=== PATIENT | female | born 1950 | race African-American/Black ===

== ENCOUNTER 2017-02-06 20:15 | Inpatient (IN) ==
--- NOTE | 2017-02-07 00:07 | Emergency Department Note ---
Arrival - Arrival Chief Complaint: Extremity Problem Stated Complaint: Left leg swollen ED Nursing Triage Note: Patient to triage with c/o LLE edema that has been going on for longer than a month, that has worsened since yesterday. Patient had US done last month to R/O DVT and was told she did not have any DVT. nonpitting edema to LLE noted in triage. Mode of Arrival: Ambulatory Time Seen by Provider: 02/06/17 23:09 - History of Present Illness HPI Narrative: This is a 66-year-old female of descent who first noted swelling of her left lower extremity in December where bilateral Doppler studies of the both lower extremities showed no deep venous thrombosis. Since that time the swelling of her left leg has become dramatically larger and more painful. She has had no chest pain palpitations nor hemoptysis. CT scan of her pelvis done in January 2017 showed 32 mm fluid collection in the vaginal cuff with residual surrounding soft tissue density which can be seen with residual necrotic tumor, abscess. Date of Last Menstrual Period: [facility] Allergies/Adverse Reactions: Allergies Allergy/AdvReac Type Severity Reaction Status Date / Time No Known Allergies Allergy Verified 02/06/17 20:33 Home Medications: Home Medications Medication Instructions Recorded Confirmed Type Pravastatin [Pravachol] 40 mg PO BEDTIME 04/20/15 11/07/16 History Bisacodyl Tab [Dulcolax Tab] 5 mg PO DAILY 11/07/16 11/07/16 History Metoprolol Tartrate 50 mg PO DAILY 11/07/16 11/07/16 History Brimonidine/Timolol Oph Soln 1 drop BOTH EYES BID 11/14/16 11/14/16 History [Combigan] Rivaroxaban [Xarelto] 15 mg PO BID W/MEALS #42 tablet 02/07/17 Rx Review of System - Review of System Constitutional: Absent: fever, night sweats Eyes: Absent: redness, vision change Head/Ears/Nose/Throat: Absent: epistaxis, nasal drainage Respiratory: Absent: respiratory distress Cardiovascular: Absent: dyspnea on exertion, orthopnea Gastrointestinal: Absent: diarrhea, constipation, hematemesis Genitourinary female: Absent: frequency, genital lesions, hematuria Musculoskeletal: Absent: joint swelling, lower back pain, leg pain Skin: Absent: change in hair/nails Neurological: Absent: numbness, paresthesias Psychiatric: Absent: suicidal thoughts, homicidal thoughts, auditory hallucinations Endocrine: Absent: heat intolerance, polydipsia, polyuria Hematological/Lymphatic: Absent: easy bruising Allergic/Immunologic: Absent: urticaria, itchy eyes Medical,Surgical,& Family Hx - Medical History Cardio: History of: Hypertension Neurology: History of: Vertigo (3 yrs ago) No history of: Seizures HEENT: History of: Eye Problem (glasses), Dental Problems (upper denture), Glaucoma Respiratory: History of: Pneumonia (2013) Renal: No history of: Renal Problems Genitourinary: No history of: Bladder Problem, Kidney Stones Gastrointestinal: History of: Hemorrhoids, GI Problems (constipation) Hematology: History of: Anemia, Bleeding Problems (vaginal bleeding) Reproductive: History of: Reproductive Cancer (CERIVAL) Other: History of: Cancer (CERVICAL) - Surgical History Cardiac Surgeries: Patient Denies: Cardiac Catheterization HEENT Surgeries: Patient denies: Eye Surgery, Tonsilectomy & Adenoidectomy Abdominal Surgeries: Surgical HX of: Colonoscopy Patient denies: Appendectomy, Cholecystectomy, EGD, Hernia Repair Reproductive Surgeries: Surgical HX of;: Gynecologic Surgery, Hysterectomy (2014 ), Tubal Ligation Patient denies;: Breast Surgery Orthopedic Surgeries: Patient denies;: Orthopedic Surgery - Family History Family History: Reports;: Family Diabetes (sister, mother), Family Heart Disease (mother), Family Hypertension (sisters mother) - Social History Smoking Status: Never smoker Frequency of Alcohol Use: None Type of Drug Use: None Exam Vital Signs: Vital Signs Temperature 98.5 F 02/06/17 20:29 Pulse Rate 90 02/06/17 20:29 Respiratory Rate 18 02/06/17 20:29 Blood Pressure 123/79 02/06/17 20:29 O2 Sat by Pulse Oximetry 99 02/06/17 20:29 - General Exam limited due to: ALOC General appearance: alert - Eye Eye exam: Present: PERRL, EOMI - ENT ENT exam: Present: normal exam, normal oropharynx - Neck Neck exam: Present: normal inspection, full ROM - Respiratory Respiratory exam: Present: normal lung sounds bilaterally - Cardiovascular Cardiovascular exam: Present: regular rate, normal rhythm - Abdominal Exam Abdominal exam: Present: soft, normal bowel sounds - Extremities Exam Extremities exam: Present: other (Marked edema and swelling of the left lower extremity) - Back Exam Back exam: Present: normal inspection, full ROM - Neurological Exam Neurological exam: Present: alert, oriented X3 - Psychiatric Psychiatric exam: Present: normal affect, normal mood - Skin Skin exam: Present: warm, dry Course Course Narrative: The patient has a deep venous thrombosis involving the left lower extremity. The CT scan of the abdomen shows a subsegmental right pulmonary embolus. Because of the combination of a pulmonary embolus and a large left deep venous thrombosis is seen prudent that the patient to be admitted to the hospital for anticoagulation and possible dedicated CT pulmonary angiogram of the chest. Results - Labs CBC & BMP: 02/07/17 00:00 02/07/17 00:00 Disposition Clinical Impression: Deep venous thrombosis, Pulmonary embolus Disposition: Still a Patient Additional Instructions: The CT scan of the abdomen shows a subsegmental right pulmonary embolus the Doppler study left lower extremity shows a large clot involving the major venous system of the left leg. Because of the pulmonary embolus it seems prudent that the patient should be admitted to the hospital for anticoagulation and further evaluation. Prescriptions: Rivaroxaban [Xarelto] 15 mg PO BID W/MEALS #42 tablet New Prescriptions: Rx's Medication Instructions Recorded Rivaroxaban [Xarelto] 15 mg PO BID W/MEALS #42 tablet 02/07/17
[2017-02-07] MEDS ORDERED: KETOROLAC 30 MG/1 ML VIAL IV STA (00:18)
[2017-02-07 00:24] LABS: Basophils % 0.4 % (0.0-0.8); Eosinophils # 0.7 10*3/uL (0.0-0.87); Eosinophils % 6.9 % (0.00-10.9); Hematocrit 37.8 VOL% (35.7-47.0); Hemoglobin 12.5 GM/DL (12.0-16.0); Immature Granulocytes % 0.6 %; Immature Granulocytes Absolute 0.06 #; Lymphocytes # 1.1 10*3/uL (1.4-4.0); Lymphocytes % 10.6 % (21.3-54.2); Mean Corpuscular HGB Conc 33.1 GM/DL (32-36); Mean Corpuscular Hemoglobin 29 PG (27-34); Mean Corpuscular Volume 87.1 FL (87-102); Mean Platelet Volume 10.5 FL (9.6-12.0); Monocytes # 0.6 10*3/uL (0.11-0.8); Monocytes % 5.7 % (1.7-12.7); Neutrophils % 75.8 % (38.7-73.9); Platelet Count 282 T/CUMM (130-400); Red Blood Count 4.34 MC/CUMM (3.8-5.5); White Blood Count 10.6 T/CUMM (4-12)
[2017-02-07 00:37] LABS: Albumin 3.9 G/DL (3.4-5.0); Bilirubin,Total 0.8 MG/DL (0.2-1.0); Calcium 9.5 MG/DL (8.5-10.1); Potassium 3.6 MMOL/L (3.5-5.1); Total Protein 8.7 G/DL (6.4-8.3)
[2017-02-07] MEDS ORDERED: KETOROLAC 30 MG/1 ML VIAL ONE (00:57)
[2017-02-07] MEDS ORDERED: RIVAROXABAN 15 MG TABLET PO STA (02:15)
[2017-02-07 03:01] LABS: PT Patient Result 11.1 SECS
--- NOTE | 2017-02-07 04:59 | Hospitalist History & Physical ---
Assessment and Plan (1) Endometrial carcinoma Status: Acute Assessment and plan: This at this point is been followed by her primary care physician and oncologist. Recent CT scan shows some fluid collection in the vaginal cuff suggesting possibly necrotic tissue. No suggestion of infection at this by a logical indices of CBC and clinical picture. Current Visit: Yes (2) Pulmonary nodule Status: Acute Assessment and plan: Reported this is noncalcified about 2 cm. Primary physician will be following. Current Visit: Yes (3) Deep venous thrombosis Status: Acute Assessment and plan: This is accompanied by a pulmonary embolus. Patient will be put on heparin for dose. I am not certain that she is not sitting that direct acting oral anticoagulant to coagulate will be afforded out as an outpatient. She has been given a coupon to use. We are going to start heparin at this time decision of outpatient treatment can be made when the affordability of direct acting anticoagulant can be verified. Current Visit: Yes (4) Pulmonary embolus Status: Acute Assessment and plan: Because so far this is an incidental finding, obtain CTA of chest to evaluate for the full body and no pulmonary embolism. Current Visit: Yes History of Present Illness Chief complaint: DVT PE History of present illness: Ms. Jacobson is a 66 year old female presented to the hospital for worsening swelling of the left lower extremity. Patient said that this may have started around December. Patient also venous having associated pain with the sweating. The patient the swelling got to be dramatically more. She has had some shortness of breath especially with exertion of a. No pleurisy. No cough hemoptysis. No fevers. Patient was initially evaluated in the emergency which was found to have a DVT of this left lower extremity plan was to discharge with Xarelto take for the DVT. In the process information was discovered by the emergency room for the patient did have an abnormal CT scan relating to her history of all endometrial carcinoma that revealed some more residual fluid in the vaginal cuff. He decided to repeat abdominal pelvic CT scan which also had some chest clots. On this CT scan patient does have a pulmonary embolus. For that reason will call to admit this patient for further evaluation and management. At this point I believe the patient can be put on heparin decision to treat with the oral director acting anticoagulants can be made later. I am informed that the DVT involves the whole lower extremity. As such patient has a large DVT burden. In talking to how her last surgery was done in 2014. She has not had any long distance travel. There is no history of thrombophilia in the family. After surgery for the endometrial carcinoma she did not have any problems with DVTs. However it should be known that she does have a noncalcified nodule on the lung there is no other demonstration of disease anywhere she does have a history of wall pelvic irradiation. Pre-existing history of carcinoma does have low prothrombotic risk. I therefore cannot say that 100% of this DVT is not provoked. Home Medications Medication Instructions Recorded Confirmed Type Pravastatin [Pravachol] 40 mg PO BEDTIME 04/20/15 11/07/16 History Bisacodyl Tab [Dulcolax Tab] 5 mg PO DAILY 11/07/16 11/07/16 History Metoprolol Tartrate 50 mg PO DAILY 11/07/16 11/07/16 History Brimonidine/Timolol Oph Soln 1 drop BOTH EYES BID 11/14/16 11/14/16 History [Combigan] Rivaroxaban [Xarelto] 15 mg PO BID W/MEALS #42 tablet 02/07/17 Rx Allergies Allergy/AdvReac Type Severity Reaction Status Date / Time No Known Allergies Allergy Verified 02/06/17 20:33 Medical,Surgical,& Family Hx - Medical History Cardio: History of: Hypertension Neurology: History of: Vertigo (3 yrs ago) No history of: Seizures HEENT: History of: Eye Problem (glasses), Dental Problems (upper denture), Glaucoma Respiratory: History of: Pneumonia (2013) Renal: No history of: Renal Problems Genitourinary: No history of: Bladder Problem, Kidney Stones Gastrointestinal: History of: Hemorrhoids, GI Problems (constipation) Hematology: History of: Anemia, Bleeding Problems (vaginal bleeding) Reproductive: History of: Reproductive Cancer (CERIVAL) Other: History of: Cancer (CERVICAL) - Surgical History Cardiac Surgeries: Patient Denies: Cardiac Catheterization HEENT Surgeries: Patient denies: Eye Surgery, Tonsilectomy & Adenoidectomy Abdominal Surgeries: Surgical HX of: Colonoscopy Patient denies: Appendectomy, Cholecystectomy, EGD, Hernia Repair Reproductive Surgeries: Surgical HX of;: Gynecologic Surgery, Hysterectomy (2015 ), Tubal Ligation Patient denies;: Breast Surgery Orthopedic Surgeries: Patient denies;: Orthopedic Surgery - Family History Family History: Reports;: Family Diabetes (sister, mother), Family Heart Disease (mother), Family Hypertension (sisters mother) - Social History Smoking Status: Never smoker Frequency of Alcohol Use: None Type of Drug Use: None Review of systems: 12 point system assessment has been done. This significant for the chief complaint and history of presenting illness and past medical history. Patient is well developed and preserved in no acute distress. Exam - Constitutional Vitals: Period Temp Pulse Resp BP Sys/Mondragon Pulse Ox Last 24 Hr 98.5 F-98.5 F 90-90 18-18 123-123/79-79 99 General appearance: normal weight, no acute distress - Head Head exam: Present: normocephalic - Eye Eye exam: Present: EOMI, other (Anicteric sclera no conjunctival petechiae) Pupils: Present: VINCE - ENT ENT exam: Present: normal exam - Neck Neck exam: Present: normal inspection - Respiratory Respiratory exam: Present: clear to auscultation bilaterally - Cardiovascular Cardiovascular exam: Present: regular rate and rhythm - GI/Abdominal GI/Abdominal exam: Present: normal bowel sounds - Extremities Exam Extremities exam: Present: full ROM, other (Significant edema of the left lower extremity tenderness and the cough no fragment is) - Neurological Exam Neurological exam: Present: alert, oriented X3, CN II-XII intact - Psychiatric Psychiatric exam: Present: normal affect, normal mood - Skin Skin exam: Present: normal color, warm, dry Results - Labs CBC & BMP: 02/07/17 00:00 02/07/17 00:00 Lab Results: I have reviewed the past 24 hour labs (PTT of 26 and INR of 1.0 hemogram was normal chemistry is unremarkable)
[2017-02-07] MEDS: HEPARIN DRIP 25,000 UNITS/500 ML PREMIX IV SCH ×2 (05:10→23:51)
--- NOTE | 2017-02-07 06:20 | Ultrasound Report ---
Exam: US venous doppler LE LT Indication: DVT questioned pain Date: 02/07/2017 12:16 AM Findings: Grayscale color flow duplex/Doppler imaging and spectral analysis waveform imaging was performed with real-time ultrasound with image stored and captured. The left common femoral, superficial femoral, popliteal and saphenous veins are demonstrated with extensive thrombus present. There is no evidence of popliteal or Britt's cyst. Abnormal wave form analysis present. Abnormal color flow. Impression: 1. Acute Extensive left lower extremity deep vein thrombosis. These findings represent a change when compared to the previous exam dated 12/28/2016 Critical test report was given to Dr. Kapoor at 2:22 AM by [facility] radiology PROCEDURE INTERPRETED AT [facility] DEPARTMENT OF RADIOLOGY Final Report Signed by: Dr. Jack Damon
--- NOTE | 2017-02-07 06:42 | CT Report ---
Exam: CT abdomen pelvis w con Date: 02/07/2017 12:17 AM Comparison: Previous CT abdomen pelvis 08/15/2016 Indication: Left leg pain and swelling Total DLP: 498.1 mGy*cm Technical: The study was performed without oral contrast Images were obtained from the lung bases to the iliac crest continuation through the pelvis with 100 cc of Omnipaque 350 with axial sagittal coronal imaging available for review. Dose reduction was performed with decreasing kv and mA and automated exposure Findings: The exam reveals initially reviewed by C. Lung bases: No obvious infiltrates or effusions. Mid thromboemboli present in the right lung base Liver and Spleen: There is minimal abnormality within the liver. Small calcification in the right lobe of the liver is present. The hepatic and portal veins are otherwise unremarkable. The spleen is intact. Gallbladder and Pancreas: Unremarkable Adrenals: Unremarkable Kidneys: Both kidneys are equally perfused and demonstrate no evidence for obstructive uropathy. A 7 mm cyst is present in the right kidney laterally Stomach: Incomplete distended with air fluid and debris Retroperitoneum: No enlarged lymph nodes. Aorta and IVC: Minimal atherosclerotic plaque in aorta iliac vessels. Bowel and Mesentery: There is no evidence for bowel obstruction. No evidence of appendicitis or diverticulosis or diverticulitis clearly seen. Pelvis: Bladder: Partially distended with fluid with little contrast present Fluid: No free fluid identified. Lymph nodes: Small calcifications are present in the pelvis. No adenopathy present. Pelvic organs: No adnexal mass lesions are clearly seen otherwise. Osseous structures: Compression deformity present at T10. There is mild anterolisthesis of L3 with respect to L4. Impression: 1. Compression fracture at T10 2. Pulmonary thromboemboli incidentally noted in the lung bases on the right with extensive DVT in the left leg suspected involving the left external iliac common femoral vein 3. Minimal bladder wall thickening with incomplete distention 4. Hepatic lesion. This possibly could represent hemangiomata clarified Formal CT PE chest may be beneficial Critical test report given to Dr. Kapoor at 2:22 AM PROCEDURE INTERPRETED AT [facility] DEPARTMENT OF RADIOLOGY Final Report Signed by: Dr. Jack Damon
--- NOTE | 2017-02-07 12:01 | CT Report ---
Exam: CT chest PE study Date: 02/07/2017 5:13 AM Indication: Pulmonary thromboemboli demonstrated on CT abdomen pelvis 1 day earlier with DVT in the left leg Comparison: Previous abdomen pelvis CT and ultrasound of the left leg Total DLP 179.4 Technical: Images were obtained from the thoracic inlet through the lung bases with 80 cc of Omnipaque 350 with axial and coronal imaging available for review.Dose reduction was performed with decreasing kv and mA and automated exposure. 3-D MIP images were obtained Findings: Examination reveals pulmonary thromboemboli in the second third order branches of the posterior right lung base. The primary pulmonary outflow tract and proximal left and right pulmonary arteries are unremarkable. There is small area of thrombus in the second and third order branches of the left lung also present. The lungs are clear without infiltrates or effusions. The mediastinum and bony structures are intact. Small granuloma present in the liver. The spleen is intact. There is contrast in the kidneys. Stomach is incompletely distended. Adrenal glands are intact. Impression: 1. Bilateral pulmonary thromboemboli involving the second and third order branches of the right and left lung base PROCEDURE INTERPRETED AT [facility] DEPARTMENT OF RADIOLOGY Final Report Signed by: Dr. Jack Damon
[2017-02-07] MEDS ORDERED: BISACODYL 5 MG TABLET PO PRN (12:48)
--- NOTE | 2017-02-07 12:54 | Event Note ---
Patient seen and examined and chart reviewed. 66-year-old -[place] female was admitted with left leg swelling, was found to have extensive DVT left leg, as well as bilateral pulmonary emboli. She has mild chest discomfort for pulmonary emboli. She has past medical history of hypertension, glaucoma, constipation and hypercholesterolemia. Currently she is on IV heparin infusion. We will check a 2D echocardiogram. I have discussed the case with interventional radiology by phone today and they are going to evaluate her for thrombolysis and an IVC filter. All questions were answered.
--- NOTE | 2017-02-07 14:42 | Event Note ---
Interventional Radiology was asked to see the patient regarding the possibility of left lower extremity thrombolysis. Review of CT and ultrasound images from earlier today shows extensive deep venous thrombosis of the left lower extremity extending through the left external iliac vein level. There is also evidence of peripheral pulmonary embolic disease. Discussed benefits, risks, and alternatives to thrombolysis of the left lower extremity. Also discussed benefits and risks of IVC filter placement prior to thrombolysis, given the fact that she has evidence of acute pulmonary embolic disease. The patient verbally gives consent to the procedure. It is planned to perform IVC filter placement and left lower extremity thrombolysis tomorrow since the patient had a regular diet lunch at or after 12:00 PM today.
[2017-02-07] MEDS: BRIMONIDINE/TIMOLOL OPH SOLN 5 ML BOTTLE BOTH EYES SCH ×2 (15:59→20:47)
--- NOTE | 2017-02-07 20:03 | ECHO Report ---
Hilary Jacobson Exam Date: 02/07/2017 13:22 Referring Physician: Technologist: ej Vaca ARDMS, RVT Age: 66 Ht (in): 62 Wt (lb): 145 Gender: F Exam Location: [facility] Echo Indications: Pulmonary embolus bilateral, DVT, Pulmonary nodule, Endometrial ca BP: 115 / 72 HR: 78 Rhythm: Sinus Technical Quality: Fair IMPRESSIONS Normal LV systolic function, ejection fraction 65%. Grade 1/4 diastolic dysfunction consistent with impaired relaxation. Mild tricuspid and pulmonic regurgitation. MEASUREMENTS (Male / Female) Normal Values 2D ECHO LV Diastolic Diameter PLAX 3.3 cm 4.2 - 5.9 / 3.9 - 5.3 cm LV Systolic Diameter PLAX 2.1 cm LV Fractional Shortening PLAX 37.5 % IVS Diastolic Thickness 0.7 cm 0.6 - 1.0 / 0.6 - 0.9 cm LVPW Diastolic Thickness 0.8 cm 0.6 - 1.0 / 0.6 - 0.9 cm RV Internal Dim ED PLAX 2.7 cm Aortic Root Diameter 2.5 cm LA Systolic Diameter LX 2.7 cm 3.0 - 4.0 / 2.7 - 3.8 cm DOPPLER TR Peak Velocity 233.0 cm/s TR Peak Gradient 21.7 mmHg FINDINGS Left Ventricle Normal left ventricular cavity size. Normal left ventricular wall thickness. Left ventricular ejection fraction is estimated at 65%. Right Ventricle The right ventricle is normal in size and function. Right Atrium The right atrium is normal in size. Left Atrium The left atrium is normal in size. Mitral Valve Mitral valve sclerosis. No mitral valve regurgitation. Aortic Valve Morphologically normal aortic valve without significant sclerosis or stenosis. There is no aortic regurgitation. Tricuspid Valve Morphologically normal tricuspid valve. Trace tricuspid valve regurgitation. Tricuspid regurgitation velocities suggest a PAP of 32 mmHg. Pulmonic Valve Morphologically normal pulmonic valve. Mild pulmonary valve regurgitation. Pericardium Normal pericardium without effusion. Aorta Normal ascending aorta dimension. Yaz Valdez MD (Electronically Signed) Final Date: 07 February 2017 20:02
[2017-02-07] MEDS: PRAVASTATIN 40 MG TABLET PO SCH (20:47)
[2017-02-07] MEDS: DOCUSATE SODIUM 100 MG CAPSULE PO SCH (20:47)
[2017-02-08] MEDS ORDERED: DIAZEPAM 5 MG TABLET PO ONE (09:09)
[2017-02-08] MEDS: FUROSEMIDE 40 MG TABLET PO SCH (09:22)
[2017-02-08] MEDS: DOCUSATE SODIUM 100 MG CAPSULE PO SCH ×2 (09:22→20:23)
[2017-02-08] MEDS: BRIMONIDINE/TIMOLOL OPH SOLN 5 ML BOTTLE BOTH EYES SCH ×2 (09:22→20:24)
--- NOTE | 2017-02-08 13:03 | Consultation ---
Assessment and Plan (1) Endometrial carcinoma Problem details: The patient states that she always bleeds after Dr. Thacker examined her for about a week. She is scheduled to follow-up with him earlier this month. While on suspicious for recurrence of cancer at the vaginal cuff I see no reason to pursue this at this point since she already has a visit scheduled with multiskill operator. Status: Acute Assessment and plan: Follow-up with Dr. Aldrich as planned. Proceed with treatment of current chief complaint as needed. Current Visit: Yes History of Present Illness - Data of Consult Patient: known to practice within the last 3 years Consult date: 02/08/17 - Consult Narrative Reason for consult: Postmenopausal bleeding with history of endometrial cancer and treatment History of present illness: Ms. Jacobson is a 66 year old female who has a known history of postmenopausal bleeding which is been evaluated and confirmed to be an endometrioid carcinoma. She has undergone surgery and radiation. Her last follow-up with her oncologist (Dr. Aldrich at [facility] in [place]) was in December and did not show recurrence. However, she has a follow-up scheduled for this month. She is currently been admitted for IV thromboembolism DVT and is being anticoagulated. However her bleeding began last night prior to anticoagulation and there is no history of intercourse or vaginal trauma. CC: Michael Flores MD - Home Medications and Allergies Home Medications: Home Medications Medication Instructions Recorded Confirmed Type Pravastatin [Pravachol] 40 mg PO BEDTIME 04/20/15 02/07/17 History Bisacodyl Tab [Dulcolax Tab] 5 mg PO BID 11/07/16 02/07/17 History Metoprolol Tartrate 50 mg PO DAILY 11/07/16 02/07/17 History Brimonidine/Timolol Oph Soln 1 drop BOTH EYES BID 11/14/16 02/07/17 History [Combigan] Docusate Sodium Cap [Colace Cap] 100 mg PO DAILY 02/07/17 02/07/17 History Furosemide [Furosemide] 40 mg PO DAILY 02/07/17 02/07/17 History Allergies/Adverse Reactions: Allergies Allergy/AdvReac Type Severity Reaction Status Date / Time No Known Allergies Allergy Verified 02/06/17 20:33 Medical,Surgical,& Family Hx - Medical History Cardio: History of: Hypertension Neurology: History of: Vertigo (3 yrs ago) No history of: Seizures HEENT: History of: Eye Problem (glasses), Dental Problems (upper denture), Glaucoma Respiratory: History of: Pneumonia (2013) Renal: No history of: Renal Problems Genitourinary: No history of: Bladder Problem, Kidney Stones Gastrointestinal: History of: Hemorrhoids, GI Problems (constipation) Hematology: History of: Anemia, Bleeding Problems (vaginal bleeding) Reproductive: History of: Reproductive Cancer (cervical) Other: History of: Cancer (CERVICAL) - Surgical History Cardiac Surgeries: Patient Denies: Cardiac Catheterization HEENT Surgeries: Patient denies: Eye Surgery, Tonsilectomy & Adenoidectomy Abdominal Surgeries: Surgical HX of: Colonoscopy Patient denies: Appendectomy, Cholecystectomy, EGD, Hernia Repair Reproductive Surgeries: Surgical HX of;: Gynecologic Surgery, Hysterectomy (2014 ), Tubal Ligation Patient denies;: Breast Surgery Orthopedic Surgeries: Patient denies;: Orthopedic Surgery - Family History Family History: Reports;: Family Diabetes (sister, mother), Family Heart Disease (mother), Family Hypertension (sisters mother) - Social History Smoking Status: Never smoker Frequency of Alcohol Use: None Type of Drug Use: None Exam - Constitutional Vitals: Period Temp Pulse Resp BP Sys/Mondragon Pulse Ox Last 24 Hr 97.9 F-98.8 F 65-77 16-18 107-125/57-73 93-100 General appearance: no acute distress - Head Head exam: Present: normal inspection - Respiratory Respiratory exam: Present: clear to auscultation bilaterally. Absent: accessory muscle use - Cardiovascular Cardiovascular exam: Present: regular rate and rhythm - GI/Abdominal GI/Abdominal exam: Present: soft. Absent: distended, guarding, tenderness - Extremities Exam Extremities exam: Present: normal inspection - Neurological Exam Neurological exam: Present: alert, oriented X3 - Psychiatric Psychiatric exam: Present: normal affect, normal mood - Skin Skin exam: Present: normal color, warm, dry Results - Labs CBC & BMP: 02/07/17 00:00 02/07/17 00:00 Exam JUKE BOX SERVICER - Constitutional Vitals: Vital Signs Temp Pulse Resp BP Pulse Ox 02/08/17 12:00 98.8 F 66 18 125/57 100 02/08/17 08:00 98.5 F 65 107/72 93 L 02/08/17 04:00 98.7 F 73 18 120/73 98 02/08/17 03:00 18 02/08/17 01:10 18 02/08/17 00:15 97.9 F 72 18 112/67 96 02/07/17 20:20 98.0 F 77 18 115/73 97 02/07/17 16:00 97.9 F 77 16 120/70 97 - Breast Menstruation: post hysterectomy, post menopausal (The vagina is shortened from previous surgery and radiation for endometrial cancer. Speculum exam confirms the bleeding to be coming from the top of the vagina. This does not allow visualization. Digital exam reveals it to be hard irregular and rigid. No deep pelvic masses palpable.)
[2017-02-08] MEDS: SODIUM CHLORIDE 0.45% 1,000 ML IV SCH (15:34)
--- NOTE | 2017-02-08 15:47 | Post Interventional Procedure ---
Pre-op diagnosis: Deep venous thrombosis. Acute pulmonary embolic disease Post-op diagnosis: same Procedure: IR IVC filter placement Radiologist: Izabel Mueller Anesthesia: local Specimens: none sent Estimated blood loss: minimal (less than 3 ml) Complications: none Condition: stable Description/Findings: Informed consent was obtained. Formal timeout was performed. The patient was prepped and draped in standard fashion while in the supine position. Maximum sterile barrier technique was utilized. Using ultrasound guidance and using 1% local lidocaine anesthesia, a micropuncture needle was used to percutaneously puncture the right internal jugular vein from an anterior right lateral approach. Ultrasound images were captured and archived, documenting needle placement. A guidewire was used to traverse the superior vena cava and right atrium and enter the inferior vena cava. A 5 Setswana flush catheter was then positioned in the inferior vena cava at the L4-L5 level. Serial filming over the IVC in the AP projection during contrast injection was performed, for the purposes of an inferior venacavogram. The IVC is normal in caliber at 15 mm diameter. There is no thrombus within the IVC. The renal veins are both clearly visualized. Following guidewire exchange, an introducer sheath was in position with its distal tip in the IVC. A [place] IVC filter was then placed in an infrarenal location with satisfactory result, using the standard delivery kit. There is no significant tilt of the filter. No immediate complications were encountered. The catheters were removed, and manual pressure was used to obtain hemostasis. The patient was allowed to leave the interventional suite after hemostasis had been achieved. Total fluoroscopy time: 6.1 minutes Total contrast used: 20 mL Omnipaque 350 Total fluoroscopic images captured and archived: 36 Impression: IVC filter was placed in an infrarenal location from a right internal jugular percutaneous approach, with technical success Assessment and Plan - Time spent with patient Time spent with patient: Less than 30 minutes
--- NOTE | 2017-02-08 15:50 | Interventional Radiology Rpt ---
History: Deep venous thrombosis. Acute pulmonary embolic disease. Now with new onset vaginal bleeding while on heparin Date: 02/08/2017 Study: IR IVC filter placement Comparison exam: Not applicable Informed consent was obtained. Formal timeout was performed. The patient was prepped and draped in standard fashion while in the supine position. Maximum sterile barrier technique was utilized. Using ultrasound guidance and using 1% local lidocaine anesthesia, a micropuncture needle was used to percutaneously puncture the right internal jugular vein from an anterior right lateral approach. Ultrasound images were captured and archived, documenting needle placement. A guidewire was used to traverse the superior vena cava and right atrium and enter the inferior vena cava. A 5 [place] flush catheter was then positioned in the inferior vena cava at the L4-L5 level. Serial filming over the IVC in the AP projection during contrast injection was performed, for the purposes of an inferior venacavogram. The IVC is normal in caliber at 15 mm diameter. There is no thrombus within the IVC. The renal veins are both clearly visualized. Following guidewire exchange, an introducer sheath was in position with its distal tip in the IVC. A [place] IVC filter was then placed in an infrarenal location with satisfactory result, using the standard delivery kit. There is no significant tilt of the filter. No immediate complications were encountered. The catheters were removed, and manual pressure was used to obtain hemostasis. The patient was allowed to leave the interventional suite after hemostasis had been achieved. Total fluoroscopy time: 6.1 minutes Total contrast used: 20 mL Omnipaque 350 Total fluoroscopic images captured and archived: 36 Impression: IVC filter was placed in an infrarenal location from a right internal jugular percutaneous approach, with technical success PROCEDURE INTERPRETED AT [facility] Final Report Signed by: Dr. Izabel Mueller
--- NOTE | 2017-02-08 16:34 | Hospitalist Progress Note ---
Hospitalist: Subjective Interval history: 66-year-old -[place] female was admitted with left leg swelling, was found to have extensive DVT left leg, as well as bilateral pulmonary emboli. She has mild chest discomfort for pulmonary emboli. She has past medical history of hypertension, glaucoma, constipation and hypercholesterolemia. She has some problems with vaginal bleeding today and CONTACT LENS BLOCKER AND CUTTER were consulted. She is status post IVC filter placement by interventional radiology today. Exam - Constitutional Vitals: Period Temp Pulse Resp BP Sys/Mondragon Pulse Ox Last 24 Hr 97.8 F-98.8 F 61-80 16-20 107-147/57-87 93-100 Exam: General: [No Acute Distress] HEENT: [Normocephalic, atraumatic, Extra ocular movements intact] Neck: [Supple, No JVD] Chest: [Clear to auscultation B/L] CV: [S1 + S2 audible without murmur, gallop or rub] Abd: [soft, NT, Non-distended, BS +] Ext: [Left lower extremity swelling] Skin: [No purpura, bruising or rash] Rheumatologic: [No Joint deformities] Neurologic: [Strength 5/5 all extremities, no gross sensory deficits] Results - Labs CBC & BMP: 02/07/17 00:00 02/07/17 00:00 - Impressions Assessment and Plan Deep venous thrombosis leg and bilateral pulmonary emboli Status: Acute Assessment and plan: She has extensive DVT in the leg, as well as bilateral pulmonary emboli; she is status post IVC filter placement 02/08 by interventional radiology using transjugular approach. Thrombolysis could not be done due to her vaginal bleeding. Current Visit: Yes Vagina bleeding with history of endometrial carcinoma Status: Acute Assessment and plan: Patient was seen by Dr. Nobles ENTERPRISE SYSTEMS MANAGER for vaginal bleeding. It felt that she might have recurrence of cancer at the vaginal cuff. Dr. Nobles recommended that patient continue follow-up with Dr. Thacker her oncologist at [facility] as an outpatient. Patient has had previous surgery and radiation for endometrial carcinoma. We will continue to monitor her CBC Current Visit: Yes Other medical comorbidities are essential hypertension, hypercholesterolemia and glaucoma which are currently stable on home meds
[2017-02-08] MEDS ORDERED: HEPARIN 5,000 UNIT/1 ML VIAL IV PRN ×2 (17:00)
[2017-02-08] MEDS: PRAVASTATIN 40 MG TABLET PO SCH (20:23)
[2017-02-09] MEDS: HEPARIN DRIP 25,000 UNITS/500 ML PREMIX IV SCH ×2 (01:09→20:06)
[2017-02-09 06:37] LABS: Basophils # 0.1 10*3/uL (0.0-0.2); Basophils % 0.6 % (0.0-0.8); Eosinophils # 1.6 10*3/uL (0.0-0.87); Hematocrit 31.8 VOL% (35.7-47.0); Hemoglobin 10.6 GM/DL (12.0-16.0); Immature Granulocytes % 0.5 %; Immature Granulocytes Absolute 0.05 #; Lymphocytes # 1.5 10*3/uL (1.4-4.0); Lymphocytes % 14.3 % (21.3-54.2); Mean Corpuscular HGB Conc 33.3 GM/DL (32-36); Mean Corpuscular Hemoglobin 29 PG (27-34); Mean Corpuscular Volume 86.9 FL (87-102); Mean Platelet Volume 10.3 FL (9.6-12.0); Monocytes # 0.8 10*3/uL (0.11-0.8); Monocytes % 7.8 % (1.7-12.7); Neutrophils # 6.5 10*3/uL (1.4-7.4); Neutrophils % 61.8 % (38.7-73.9); Platelet Count 243 T/CUMM (130-400); Red Blood Count 3.66 MC/CUMM (3.8-5.5); White Blood Count 10.5 T/CUMM (4-12)
[2017-02-09 07:06] LABS: Band Neutrophils 1 % (0-10); Eosinophils 16 % (0-10); Hypochromasia 1+; Lymphocytes 14 % (20-55); Platelet Estimate Adequate; Segmented Neutrophils 63 % (50-85); Total Cells Counted 100
[2017-02-09 07:22] LABS: Calcium 9.1 MG/DL (8.5-10.1); Osmolality,Calculated 273.8 MOS/KG (273-304); Potassium 3.4 MMOL/L (3.5-5.1)
[2017-02-09] MEDS: FUROSEMIDE 40 MG TABLET PO SCH (08:07)
[2017-02-09] MEDS: DOCUSATE SODIUM 100 MG CAPSULE PO SCH ×2 (08:07→20:05)
[2017-02-09] MEDS: BRIMONIDINE/TIMOLOL OPH SOLN 5 ML BOTTLE BOTH EYES SCH ×2 (08:07→20:05)
[2017-02-09] MEDS: SODIUM CHLORIDE 0.45% 1,000 ML IV SCH (13:19)
--- NOTE | 2017-02-09 16:03 | Hospitalist Progress Note ---
Hospitalist: Subjective Interval history: 66-year-old -Salvad[place] female was admitted with left leg swelling, was found to have extensive DVT left leg, as well as bilateral pulmonary emboli. She has past medical history of hypertension, glaucoma, constipation and hypercholesterolemia. She only has minimal vaginal bleed. Exam - Constitutional Vitals: Period Temp Pulse Resp BP Sys/Mondragon Pulse Ox Last 24 Hr 97.3 F-99.0 F 71-88 16-20 108-117/62-78 93-99 Exam: General: [No Acute Distress] HEENT: [Normocephalic, atraumatic, Extra ocular movements intact] Neck: [Supple, No JVD] Chest: [Clear to auscultation B/L] CV: [S1 + S2 audible without murmur, gallop or rub] Abd: [soft, NT, Non-distended, BS +] Ext: [Left lower extremity swelling] Skin: [No purpura, bruising or rash] Rheumatologic: [No Joint deformities] Neurologic: [Strength 5/5 all extremities, no gross sensory deficits] Results - Labs CBC & BMP: 02/09/17 05:54 02/09/17 05:54 - Impressions Assessment and Plan Deep venous thrombosis leg and bilateral pulmonary emboli Status: Acute Assessment and plan: She has extensive DVT in the leg, as well as bilateral pulmonary emboli; she is status post IVC filter placement 02/08 by interventional radiology using transjugular approach. Thrombolysis could not be done due to her vaginal bleeding. Current Visit: Yes Vagina bleeding with history of endometrial carcinoma Status: Acute Assessment and plan: Patient is being followed by Dr. Nobles PROGRAM AND RESEARCH COORDINATOR for vaginal bleeding. It felt that she might have recurrence of cancer at the vaginal cuff. Dr. Nobles recommended that patient continue follow-up with Dr. Thacker her oncologist at [facility] as an outpatient. Patient has had previous surgery and radiation for endometrial carcinoma. We will continue to monitor her CBC. She does have some anemia of GI blood loss, will transfuse as needed. If any time PROGRAM AND RESEARCH COORDINATOR feels that she is going to need an endometrial biopsy, we can temporarily hold the heparin for that, especially now that she has an IVC filter in place. Current Visit: Yes Other medical comorbidities are essential hypertension, hypercholesterolemia and glaucoma which are currently stable on home meds
[2017-02-09] MEDS: POTASSIUM CHLORIDE 20 MEQ TABLET PO SCH (17:31)
[2017-02-09] MEDS: PRAVASTATIN 40 MG TABLET PO SCH (20:05)
[2017-02-10 06:47] LABS: Basophils % 0.4 % (0.0-0.8); Eosinophils # 1.7 10*3/uL (0.0-0.87); Eosinophils % 18.5 % (0.00-10.9); Hematocrit 31.1 VOL% (35.7-47.0); Hemoglobin 10.2 GM/DL (12.0-16.0); Immature Granulocytes % 0.5 %; Immature Granulocytes Absolute 0.05 #; Lymphocytes # 1.4 10*3/uL (1.4-4.0); Lymphocytes % 15.4 % (21.3-54.2); Mean Corpuscular HGB Conc 32.8 GM/DL (32-36); Mean Corpuscular Hemoglobin 29 PG (27-34); Mean Corpuscular Volume 88.1 FL (87-102); Mean Platelet Volume 9.8 FL (9.6-12.0); Monocytes # 0.8 10*3/uL (0.11-0.8); Monocytes % 8.7 % (1.7-12.7); Neutrophils # 5.3 10*3/uL (1.4-7.4); Neutrophils % 56.5 % (38.7-73.9); Platelet Count 242 T/CUMM (130-400); Red Blood Count 3.53 MC/CUMM (3.8-5.5); Red Cell Distribution Width 13.1 % (9.3-17.3); White Blood Count 9.4 T/CUMM (4-12)
[2017-02-10 07:10] LABS: Band Neutrophils 1 % (0-10); Eosinophils 16 % (0-10); Giant Platelets Few; Hypochromasia 1+; Lymphocytes 17 % (20-55); Myelocytes 1 %; Ovalocytes Slight; Platelet Estimate Adequate; Segmented Neutrophils 59 % (50-85); Total Cells Counted 100
[2017-02-10 08:06] LABS: Calcium 8.9 MG/DL (8.5-10.1); Osmolality,Calculated 276.5 MOS/KG (273-304); Potassium 4.3 MMOL/L (3.5-5.1)
[2017-02-10] MEDS: HEPARIN DRIP 25,000 UNITS/500 ML PREMIX IV SCH (08:09)
[2017-02-10] MEDS: BRIMONIDINE/TIMOLOL OPH SOLN 5 ML BOTTLE BOTH EYES SCH (09:07)
[2017-02-10] MEDS: POTASSIUM CHLORIDE 20 MEQ TABLET PO SCH (09:07)
[2017-02-10] MEDS: DOCUSATE SODIUM 100 MG CAPSULE PO SCH (09:07)
[2017-02-10] MEDS: SODIUM CHLORIDE 0.45% 1,000 ML IV SCH (09:07)
[2017-02-10] MEDS: FUROSEMIDE 40 MG TABLET PO SCH (09:07)
[2017-02-10] MEDS ORDERED: APIXABAN 5 MG TABLET PO SCH (12:30)
--- NOTE | 2017-02-10 12:39 | Discharge Summary ---
Hospital Course - Hospital Course Hospital Course: 66 year old female presented to the hospital for worsening swelling of the left lower extremity going on for over a month and was found to have extensive DVT of the left lower extremity on ultrasound. She also had some shortness of breath especially with exertion and CT abdomen actually showed bilateral pulmonary pulmonary emboli incidentally as well. Patient was admitted to the hospital and started on IV heparin infusion. She also has history of previous endometrial carcinoma for which she follows with Dr. Thacker at [facility] in [place] is her PAINT SPRAYING MACHINE OPERATOR HELPER; she has had surgery and pelvic irradiation in the past for that. She did have history of intermittent vaginal bleeding especially on pelvic exam. She did have recurrence of some of the vagina bleeding while she was in the hospital. PAINT SPRAYING MACHINE OPERATOR HELPER were consulted and patient was seen by Dr. Nobles who did a pelvic exam and recommended that patient continue follow-up with Dr. Aldrich as an outpatient. Internal interventional radiology were consulted for IVC filter placement as well as consideration for thrombolysis of left lower cavity DVT. However due to her active intermittent vaginal bleeding radiologist only performed an IVC filter and postponed thrombolyses until after her vaginal bleeding issues have resolved. Patient was agreeable to this plan and underwent an IVC filter placement. As Dr. Nobles has referred patient back to Dr. Thacker her primary PAINT SPRAYING MACHINE OPERATOR HELPER and the radiologist is not considering thrombolysis at this time, we are transitioning her to oral Eliquis and discharge home. Patient is in contact with her primary PAINT SPRAYING MACHINE OPERATOR HELPER Dr. Thacker was aware that she is on anticoagulants. She will call Dr. Thacker about her vaginal bleeding issues and get an appointment for further evaluation and management of that problem. Patient leg swelling has improved and her DVT seems to be improving as well. She does understand that she is going to need long-term anticoagulation. Her primary care physician will follow up with that as an outpatient. Overall patient has reached maximal hospital benefit and is agreeable to be discharged home to follow-up with Dr. Thacker as an outpatient and continue follow-up with her primary care physician as well and return to ER for any worsening symptoms. Discharge instructions and prescriptions were provided. Total discharge time was 46 minutes. - Time spent with patient Time with patient DS: Greater than 30 minutes Discharge Plan - Discharge Data Condition at Discharge: Stable Discharge Diet: advance to your usual diet Activity: resume usual activities as tolerated Hygiene: no restrictions Weight Bearing at Discharge: full weight bearing Driving: no restrictions Contact your physician if you experience:: fever over 101, Nausea/Vomiting, Shortness of breath, pain uncontrolled by pain medications - Discharge Medications New Apixaban [Eliquis] 5 mg PO BID #60 tablet HYDROcodone/ACETAMIN 5-325 [[place] 5-325] 1 tablet PO Q4H PRN #30 tablet PRN Reason: Pain Moderate (4-7) Continue Pravastatin [Pravachol] 40 mg PO BEDTIME Bisacodyl Tab [Dulcolax Tab] 5 mg PO BID Furosemide 40 mg PO DAILY Docusate Sodium Cap [Colace Cap] 100 mg PO DAILY Brimonidine/Timolol Oph Soln [Combigan] 1 drop BOTH EYES BID Discontinued Metoprolol Tartrate 50 mg PO DAILY - Follow Up or Referral Follow Up: No PCP,. [Physician] - 2 Weeks - Forms/Instructions Exam - Constitutional Vitals: Period Temp Pulse Resp BP Sys/Mondragon Pulse Ox Last 24 Hr 98.0 F-98.8 F 65-85 16-19 102-111/58-76 93-100 Exam: General: [No Acute Distress] HEENT: [Normocephalic, atraumatic, Extra ocular movements intact] Neck: [Supple, No JVD] Chest: [Clear to auscultation B/L] CV: [S1 + S2 audible without murmur, gallop or rub] Abd: [soft, NT, Non-distended, BS +] Ext: [Moderate lower extremity swelling] Skin: [No purpura, bruising or rash] Rheumatologic: [No Joint deformities] Neurologic: [Strength 5/5 all extremities, no gross sensory deficits] Discharge Results Procedures and tests throughout hospitalization: Pending Orders 02/10/17 12:18 PTT [Partial Thromboplastin Time] Routine 02/11/17 04:00 BMP [Basic Metabolic Panel] IN AM CBC [Comp Blood Count Auto Diff] IN AM 02/12/17 04:00 BMP [Basic Metabolic Panel] IN AM CBC [Comp Blood Count Auto Diff] IN AM 02/13/17 04:00 BMP [Basic Metabolic Panel] IN AM CBC [Comp Blood Count Auto Diff] IN AM 02/14/17 04:00 BMP [Basic Metabolic Panel] IN AM CBC [Comp Blood Count Auto Diff] IN AM Labs on day of discharge: Labs from last 24 hours 09/01/1902/10/17 02/10/17 06:16 06:16 06:16 WBC 9.4 RBC 3.53 L Hgb 10.2 L Hct 31.1 L MCV 88.1 MCH 29 MCHC 32.8 RDW 13.1 Plt Count 242 MPV 9.8 Neut % (Auto) 56.5 Lymph % (Auto) 15.4 L [place] % (Auto) 8.7 Eos % (Auto) 18.5 H Baso % (Auto) 0.4 Neut # (Auto) 5.3 Lymph # (Auto) 1.4 [place] # (Auto) 0.8 Eos # (Auto) 1.7 H Baso # (Auto) 0.0 Total Counted 100 Immature Gran % 0.5 Nucleated RBC % 0.0 Immature Gran # 0.05 Segmented Neutrophils 59 Band Neutrophils 1 Lymphocytes 17 L Monocytes 5 Eosinophils 16 H Basophils 1.0 H Myelocytes 1 Nucleated RBCs # 0.00 Platelet Estimate Adequate Giant Platelets Few Immature Plt Fraction 0.0 Hypochromasia 1+ Ovalocytes Slight Circ Anticoag PTT 86.1 H Sodium 139 Potassium 4.3 Chloride 104 Carbon Dioxide 28 Anion Gap 11.3 BUN 9 Creatinine 0.70 GFR Calculation 101 BUN/Creatinine Ratio 12.00 Glucose 109 H Calculated Osmolality 276.5 Calcium 8.9 02/09/17 02/09/17 19:43 14:05 WBC RBC Hgb Hct MCV MCH MCHC RDW Plt Count MPV Neut % (Auto) Lymph % (Auto) [place] % (Auto) Eos % (Auto) Baso % (Auto) Neut # (Auto) Lymph # (Auto) [place] # (Auto) Eos # (Auto) Baso # (Auto) Total Counted Immature Gran % Nucleated RBC % Immature Gran # Segmented Neutrophils Band Neutrophils Lymphocytes Monocytes Eosinophils Basophils Myelocytes Nucleated RBCs # Platelet Estimate Giant Platelets Immature Plt Fraction Hypochromasia Ovalocytes Circ Anticoag PTT 79.8 H 68.1 H D Sodium Potassium Chloride Carbon Dioxide Anion Gap BUN Creatinine GFR Calculation BUN/Creatinine Ratio Glucose Calculated Osmolality Calcium DS: Provider Date of admission: 02/07/17 04:52 Primary care physician: Jack Franco, Attending physician on admission: Quan Jerry MD Consults: 02/07/17 08:50 Consult to Physician [CONS] Routine Comment: Please evaluate for extensive DVT Consulting Provider: Izabel Mueller When should Consulting Provider be notified: Now Person Notified: RE Date Notified: 02/07/17 Time Notified: 10:17 02/08/17 10:20 Consult to Physician [CONS] Routine Comment: eval vaginal bleeding- Consulting Provider: Jack Nobles Consult to Specialist Group: [id number] Person Notified: Keira Date Notified: 02/08/17 Time Notified: 10:29 Discharging clinician: Michael Flores MD
[2017-02-10 17:02] VITALS: BP 111/73
== END 2017-02-10 18:20 | disposition home or self-care (01) | DRG 252 ==
LOC: N.ED 20:15 → SUATTDRO 02-07 04:52 → N.EDINP 02-07 04:52 → N.5E 02-07 05:35
PROVIDERS: ADMIT Internal Medicine Infectious Disease; ATTEND Hospitalist

== ENCOUNTER 2017-03-31 17:42 | Inpatient (IN) ==
[2017-03-31] MEDS ORDERED: ONDANSETRON 4 MG/2 ML VIAL IV STA (19:24)
[2017-03-31] MEDS ORDERED: MORPHINE 2 MG/1 ML SYRINGE IV STA (19:24)
[2017-03-31] MEDS ORDERED: MORPHINE 2 MG/1 ML SYRINGE ONE ×2 (19:47→19:48)
[2017-03-31] MEDS ORDERED: ONDANSETRON 4 MG/2 ML VIAL ONE (19:47)
[2017-03-31 20:34] LABS: Basophils % 0.3 % (0.0-0.8); Eosinophils % 8.1 % (0.00-10.9); Hematocrit 29.8 VOL% (35.7-47.0); Immature Granulocytes % 0.6 %; Immature Granulocytes Absolute 0.07 #; Lymphocytes # 1.4 10*3/uL (1.4-4.0); Lymphocytes % 11.9 % (21.3-54.2); Mean Corpuscular HGB Conc 33.6 GM/DL (32-36); Mean Corpuscular Hemoglobin 28 PG (27-34); Mean Corpuscular Volume 83.2 FL (87-102); Mean Platelet Volume 9.4 FL (9.6-12.0); Monocytes # 0.8 10*3/uL (0.11-0.8); Monocytes % 6.7 % (1.7-12.7); Neutrophils # 8.6 10*3/uL (1.4-7.4); Neutrophils % 72.4 % (38.7-73.9); Platelet Count 443 T/CUMM (130-400); Red Blood Count 3.58 MC/CUMM (3.8-5.5); Red Cell Distribution Width 12.8 % (9.3-17.3); White Blood Count 11.9 T/CUMM (4-12)
[2017-03-31 20:56] LABS: Alanine Aminotransferase 10 U/L (13-56); Albumin 3.3 G/DL (3.4-5.0); Alkaline Phosphatase 111 U/L (45-117); Aspartate Amino Transferase 14 U/L (0-37); Blood Urea Nitrogen 15 MG/DL (7-18); Calcium 9.5 MG/DL (8.5-10.1); Glucose 103 MG/DL (74-106); Osmolality,Calculated 275.7 MOS/KG (273-304); Sodium 138 MMOL/L (136-145); Total Protein 8.1 G/DL (6.4-8.3); Troponin I Only < 0.015 NG/ML (0.00-0.045)
[2017-03-31 21:31] LABS: Apearance,Urine CLEAR (Clear); Bacteria,Urine Occasional /HPF (Few); Bilirubin,Urine Negative (Negative); Blood, Urine Negative (Negative); Glucose,Urine (UA) Negative (Negative); Ketones,Urine Negative (Negative); Nitrite,Urine Negative (Negative); Protein,Urine Negative; RBC,Urine 1 /HPF (0-4); Urine Color Yellow (Yellow); Urine Specific Gravity 1.005 (1.001-1.035); Urine Urobilinogen < 2.0 EU/DL (0.2-1.0); WBC,Urine 4 /HPF (0-6)
[2017-03-31] MEDS ORDERED: HYDROmorphone 2 MG/1 ML VIAL IV STA ×2 (21:43→22:21)
[2017-03-31] MEDS ORDERED: HYDROmorphone 2 MG/1 ML VIAL ONE ×2 (21:52→22:56)
[2017-04-01] MEDS ORDERED: ONDANSETRON 4 MG/2 ML VIAL IV PRN (00:05)
[2017-04-01 01:17] LABS: Lactic Acid 1.1 MMOL/L (0.4-2.0)
[2017-04-01] MEDS: SODIUM CHLORIDE 0.9% 1,000 ML IV SCH ×2 (01:18→15:18)
[2017-04-01] MEDS: ENOXAPARIN 60 MG/0.6 ML SYRINGE SUBCUT SCH (01:24)
[2017-04-01] MEDS: MORPHINE 2 MG/1 ML SYRINGE IV PRN ×3 (01:30→15:19)
[2017-04-01] MEDS: NITROFURANTOIN MACRO/MONO 100 MG CAPSULE PO SCH ×2 (01:33→09:16)
[2017-04-01 03:09] LABS: Basophils % 0.3 % (0.0-0.8); Eosinophils # 0.9 10*3/uL (0.0-0.87); Eosinophils % 7.5 % (0.00-10.9); Hematocrit 28.6 VOL% (35.7-47.0); Hemoglobin 9.4 GM/DL (12.0-16.0); Immature Granulocytes % 0.5 %; Immature Granulocytes Absolute 0.06 #; Lymphocytes # 1.2 10*3/uL (1.4-4.0); Lymphocytes % 9.8 % (21.3-54.2); Mean Corpuscular HGB Conc 32.9 GM/DL (32-36); Mean Corpuscular Hemoglobin 28 PG (27-34); Mean Corpuscular Volume 84.4 FL (87-102); Mean Platelet Volume 9.8 FL (9.6-12.0); Monocytes # 1.1 10*3/uL (0.11-0.8); Monocytes % 9.6 % (1.7-12.7); Neutrophils # 8.6 10*3/uL (1.4-7.4); Neutrophils % 72.3 % (38.7-73.9); Platelet Count 418 T/CUMM (130-400); Red Blood Count 3.39 MC/CUMM (3.8-5.5); White Blood Count 11.8 T/CUMM (4-12)
[2017-04-01 04:17] LABS: Alanine Aminotransferase < 9 U/L (13-56); Albumin 3.1 G/DL (3.4-5.0); Alkaline Phosphatase 95 U/L (45-117); Aspartate Amino Transferase 10 U/L (0-37); Blood Urea Nitrogen 14 MG/DL (7-18); Calcium 9.4 MG/DL (8.5-10.1); Glucose 93 MG/DL (74-106); Osmolality,Calculated 277.5 MOS/KG (273-304); Potassium 3.7 MMOL/L (3.5-5.1); Sodium 139 MMOL/L (136-145); Total Protein 7.2 G/DL (6.4-8.3)
[2017-04-01] MEDS: NALOXEGOL OXALATE 25 MG PO SCH (09:15)
[2017-04-01] MEDS: BRIMONIDINE/TIMOLOL OPH SOLN 5 ML BOTTLE BOTH EYES SCH ×2 (09:16→20:36)
[2017-04-01] MEDS: METOPROLOL TARTRATE 50 MG TABLET PO SCH (09:17)
[2017-04-01] MEDS ORDERED: MIDAZOLAM 2 MG/2 ML VIAL IV ONE (11:46)
[2017-04-01] MEDS ORDERED: fentaNYL 100 MCG/2 ML VIAL IV ONE (11:46)
[2017-04-01] MEDS ORDERED: DIAZEPAM 5 MG TABLET PO ONE ×2 (11:46)
[2017-04-01 12:42] LABS: Partial Thromboplastin Time 28.1 SECS (0-40)
[2017-04-01] MEDS ORDERED: MIDAZOLAM 2 MG/2 ML VIAL ONE (13:47)
[2017-04-01] MEDS ORDERED: fentaNYL 100 MCG/2 ML VIAL ONE (13:47)
[2017-04-01] MEDS: oxyCODONE/ACETAMINOPHEN 5-325 MG TABLET PO PRN ×2 (17:16→22:56)
[2017-04-01] MEDS: PRAVASTATIN 40 MG TABLET PO SCH (20:30)
[2017-04-01] MEDS: DOCUSATE SODIUM 100 MG CAPSULE PO PRN (20:37)
[2017-04-02] MEDS: SODIUM CHLORIDE 0.9% 1,000 ML IV SCH ×2 (04:22→16:08)
[2017-04-02] MEDS: BRIMONIDINE/TIMOLOL OPH SOLN 5 ML BOTTLE BOTH EYES SCH ×2 (12:06→20:21)
[2017-04-02] MEDS: GABAPENTIN 100 MG CAPSULE PO PRN ×2 (12:06→16:44)
[2017-04-02] MEDS: DOCUSATE SODIUM 100 MG CAPSULE PO PRN (12:06)
[2017-04-02] MEDS: METOPROLOL TARTRATE 50 MG TABLET PO SCH (12:06)
[2017-04-02] MEDS: oxyCODONE/ACETAMINOPHEN 5-325 MG TABLET PO PRN ×2 (12:46→18:58)
[2017-04-02] MEDS: ENOXAPARIN 60 MG/0.6 ML SYRINGE SUBCUT SCH ×2 (16:42→22:56)
[2017-04-02] MEDS: PRAVASTATIN 40 MG TABLET PO SCH (20:21)
[2017-04-02] MEDS: NALOXEGOL OXALATE 25 MG PO SCH (20:21)
[2017-04-03] MEDS: SODIUM CHLORIDE 0.9% 1,000 ML IV SCH (00:31)
[2017-04-03] MEDS: oxyCODONE/ACETAMINOPHEN 5-325 MG TABLET PO PRN ×4 (01:20→21:54)
[2017-04-03] MEDS: METOPROLOL TARTRATE 50 MG TABLET PO SCH (09:41)
[2017-04-03] MEDS: BRIMONIDINE/TIMOLOL OPH SOLN 5 ML BOTTLE BOTH EYES SCH ×2 (09:41→21:54)
[2017-04-03] MEDS: ENOXAPARIN 60 MG/0.6 ML SYRINGE SUBCUT SCH ×2 (09:41→21:46)
[2017-04-03] MEDS: NALOXEGOL OXALATE 25 MG PO SCH (09:42)
[2017-04-03] MEDS: MAGNESIUM HYDROXIDE SUSP 30 ML UDCUP PO PRN ×2 (16:52→22:17)
[2017-04-03] MEDS: GABAPENTIN 100 MG CAPSULE PO SCH ×2 (16:52→21:46)
[2017-04-03] MEDS: PRAVASTATIN 40 MG TABLET PO SCH (21:46)
[2017-04-04] MEDS: oxyCODONE/ACETAMINOPHEN 5-325 MG TABLET PO PRN ×3 (04:11→18:17)
[2017-04-04] MEDS: MAGNESIUM HYDROXIDE SUSP 30 ML UDCUP PO PRN (04:11)
[2017-04-04] MEDS: SODIUM CHLORIDE 0.9% 1,000 ML IV SCH ×2 (04:16→17:03)
[2017-04-04 07:00] LABS: Basophils % 0.2 % (0.0-0.8); Eosinophils # 1.6 10*3/uL (0.0-0.87); Eosinophils % 14.5 % (0.00-10.9); Hematocrit 25.6 VOL% (35.7-47.0); Hemoglobin 8.2 GM/DL (12.0-16.0); Immature Granulocytes % 0.6 %; Immature Granulocytes Absolute 0.07 #; Lymphocytes # 0.9 10*3/uL (1.4-4.0); Lymphocytes % 8.3 % (21.3-54.2); Mean Corpuscular Hemoglobin 28 PG (27-34); Mean Corpuscular Volume 87.4 FL (87-102); Mean Platelet Volume 10.7 FL (9.6-12.0); Monocytes # 0.8 10*3/uL (0.11-0.8); Monocytes % 6.8 % (1.7-12.7); Neutrophils # 7.7 10*3/uL (1.4-7.4); Neutrophils % 69.6 % (38.7-73.9); Red Blood Count 2.93 MC/CUMM (3.8-5.5); Red Cell Distribution Width 13.3 % (9.3-17.3)
[2017-04-04 07:06] LABS: Platelet Count 293 T/CUMM (130-400)
[2017-04-04 07:23] LABS: Eosinophils 17 % (0-10); Giant Platelets Few; Hypochromasia 1+; Lymphocytes 9 % (20-55); Ovalocytes Slight; Platelet Estimate Adequate; Segmented Neutrophils 68 % (50-85); Total Cells Counted 100
[2017-04-04 07:24] LABS: Microcytosis Slight
[2017-04-04 07:27] LABS: Alanine Aminotransferase < 9 U/L (13-56); Albumin 2.3 G/DL (3.4-5.0); Alkaline Phosphatase 78 U/L (45-117); Aspartate Amino Transferase 13 U/L (0-37); Bilirubin,Total < 0.39 MG/DL (0.2-1.0); Blood Urea Nitrogen 8 MG/DL (7-18); Calcium 8.7 MG/DL (8.5-10.1); Glucose 89 MG/DL (74-106); Sodium 143 MMOL/L (136-145)
[2017-04-04] MEDS: ENOXAPARIN 60 MG/0.6 ML SYRINGE SUBCUT SCH (09:38)
[2017-04-04] MEDS: NALOXEGOL OXALATE 25 MG PO SCH (09:39)
[2017-04-04] MEDS: METOPROLOL TARTRATE 50 MG TABLET PO SCH (09:39)
[2017-04-04] MEDS: BRIMONIDINE/TIMOLOL OPH SOLN 5 ML BOTTLE BOTH EYES SCH ×2 (09:39→23:12)
[2017-04-04] MEDS: GABAPENTIN 100 MG CAPSULE PO SCH ×3 (09:39→23:11)
[2017-04-04] MEDS: MORPHINE 2 MG/1 ML SYRINGE IV PRN ×3 (09:59→23:08)
[2017-04-04] MEDS ORDERED: LACTULOSE 20 GM/30 ML UDCUP PO PRN (14:44)
[2017-04-04] MEDS: fentaNYL 12 MCG/HR PATCH TRANSDERM SCH (15:55)
[2017-04-04] MEDS: POLYETHYLENE GLYCOL POWDER 17 GM PACK PO SCH (15:55)
[2017-04-04] MEDS: PRAVASTATIN 40 MG TABLET PO SCH (23:11)
[2017-04-05] MEDS: oxyCODONE/ACETAMINOPHEN 5-325 MG TABLET PO PRN ×3 (00:43→16:24)
[2017-04-05] MEDS ORDERED: DIAZEPAM 5 MG TABLET PO ONE (06:00)
[2017-04-05] MEDS ORDERED: FAMOTIDINE 20 MG TABLET PO ONE (06:00)
[2017-04-05] MEDS: SODIUM CHLORIDE 0.9% 1,000 ML IV SCH ×2 (06:29→18:05)
[2017-04-05] MEDS ORDERED: DIBUCAINE 1% OINT 28 GM TUBE TOP ONE (13:07)
[2017-04-05] MEDS ORDERED: PROPOFOL 200 MG/20 ML VIAL IV ONE (13:35)
[2017-04-05] MEDS ORDERED: LIDOCAINE 2% 5 ML VIAL ONE (13:35)
[2017-04-05] MEDS ORDERED: DEXAMETHASONE 10 MG/1 ML VIAL ONE (13:35)
[2017-04-05] MEDS ORDERED: ONDANSETRON 4 MG/2 ML VIAL ONE (13:35)
[2017-04-05] MEDS ORDERED: KETOROLAC 30 MG/1 ML VIAL ONE (13:35)
[2017-04-05] MEDS ORDERED: MIDAZOLAM 2 MG/2 ML VIAL ONE (14:35)
[2017-04-05] MEDS ORDERED: SEVOFLURANE 1 UNIT/15 MINUTE INH ONE (14:35)
[2017-04-05] MEDS ORDERED: fentaNYL 100 MCG/2 ML VIAL ONE (14:36)
[2017-04-05] MEDS: GABAPENTIN 100 MG CAPSULE PO SCH ×3 (16:24→21:00)
[2017-04-05] MEDS: DOCUSATE SODIUM 100 MG CAPSULE PO PRN (16:25)
[2017-04-05] MEDS: POLYETHYLENE GLYCOL POWDER 17 GM PACK PO SCH (16:30)
[2017-04-05] MEDS: METOPROLOL TARTRATE 50 MG TABLET PO SCH (19:16)
[2017-04-05] MEDS: ENOXAPARIN 60 MG/0.6 ML SYRINGE SUBCUT SCH (20:58)
[2017-04-05] MEDS: PRAVASTATIN 40 MG TABLET PO SCH (20:59)
[2017-04-05] MEDS ORDERED: METHEN/SOD PHOS/METH BLUE/HYOS TABLET PO SCH (21:00)
[2017-04-05] MEDS: BRIMONIDINE/TIMOLOL OPH SOLN 5 ML BOTTLE BOTH EYES SCH ×2 (21:00→22:13)
[2017-04-05] MEDS: NALOXEGOL OXALATE 25 MG PO SCH (22:13)
[2017-04-06 01:31] LABS: Apearance,Urine CLEAR (Clear); Bacteria,Urine Occasional /HPF (Few); Bilirubin,Urine Negative (Negative); Blood, Urine Small mg/dL (Negative); Glucose,Urine (UA) Negative (Negative); Ketones,Urine 5 mg/dL (Negative); Mucus,Urine Occasional /LPF (Occasional); Nitrite,Urine Negative (Negative); Protein,Urine Negative; RBC,Urine 2 /HPF (0-4); Squamous Epithelial Cell,Urine Occasional /HPF (0-10); Urine Color Yellow (Yellow); Urine Specific Gravity 1.009 (1.001-1.035); Urine Urobilinogen < 2.0 EU/DL (0.2-1.0); WBC,Urine 4 /HPF (0-6)
[2017-04-06] MEDS: GABAPENTIN 100 MG CAPSULE PO SCH ×4 (02:11→22:15)
[2017-04-06] MEDS: oxyCODONE/ACETAMINOPHEN 5-325 MG TABLET PO PRN ×2 (09:56→16:44)
[2017-04-06] MEDS: POLYETHYLENE GLYCOL POWDER 17 GM PACK PO SCH (09:57)
[2017-04-06] MEDS: METOPROLOL TARTRATE 50 MG TABLET PO SCH (09:58)
[2017-04-06] MEDS: DOCUSATE SODIUM 100 MG CAPSULE PO PRN (09:58)
[2017-04-06] MEDS: PHENAZOPYRIDINE 95 MG TABLET PO SCH ×3 (09:58→22:31)
[2017-04-06] MEDS: BRIMONIDINE/TIMOLOL OPH SOLN 5 ML BOTTLE BOTH EYES SCH ×2 (10:14→22:15)
[2017-04-06] MEDS: NALOXEGOL OXALATE 25 MG PO SCH (10:18)
[2017-04-06] MEDS: ENOXAPARIN 60 MG/0.6 ML SYRINGE SUBCUT SCH (10:25)
[2017-04-06] MEDS: SODIUM CHLORIDE 0.9% 1,000 ML IV SCH (10:46)
[2017-04-06] MEDS: APIXABAN 5 MG TABLET PO SCH ×2 (16:44→22:15)
[2017-04-06] MEDS: DOCUSATE SODIUM 100 MG CAPSULE PO SCH ×2 (16:44→22:15)
[2017-04-06] MEDS: PRAVASTATIN 40 MG TABLET PO SCH (22:15)
[2017-04-07] MEDS: SODIUM CHLORIDE 0.9% 1,000 ML IV SCH (00:25)
[2017-04-07] MEDS: oxyCODONE/ACETAMINOPHEN 5-325 MG TABLET PO PRN ×3 (00:46→14:23)
[2017-04-07] MEDS: PHENAZOPYRIDINE 95 MG TABLET PO SCH ×2 (08:20→12:40)
[2017-04-07] MEDS: BRIMONIDINE/TIMOLOL OPH SOLN 5 ML BOTTLE BOTH EYES SCH (08:20)
[2017-04-07] MEDS: DOCUSATE SODIUM 100 MG CAPSULE PO SCH (08:20)
[2017-04-07] MEDS: APIXABAN 5 MG TABLET PO SCH (08:20)
[2017-04-07] MEDS: GABAPENTIN 100 MG CAPSULE PO SCH ×2 (08:21→14:45)
[2017-04-07] MEDS: POLYETHYLENE GLYCOL POWDER 17 GM PACK PO SCH (08:21)
[2017-04-07] MEDS: METOPROLOL TARTRATE 50 MG TABLET PO SCH (08:21)
[2017-04-07] MEDS: NALOXEGOL OXALATE 25 MG PO SCH (08:26)
[2017-04-07] MEDS: fentaNYL 12 MCG/HR PATCH TRANSDERM SCH (08:39)
[2017-04-07] MEDS ORDERED: fentaNYL 25 MCG/HR PATCH TRANSDERM SCH (09:30)
[2017-04-07 16:38] VITALS: BP 130/61
[2017-04-07] MEDS ORDERED: POLYETHYLENE GLYCOL POWDER 17 GM PACK PO SCH (21:00)
== END 2017-04-07 17:24 | disposition home health service (06) | DRG 988 ==
LOC: EDBD → EDUNIT# → N.ED 17:42 → SUATTDRO 23:45 → N.EDINP 23:45 → N.2E 04-01 00:42
PROVIDERS: ADMIT Internal Medicine; ATTEND Internal Medicine

== ENCOUNTER 2017-05-03 17:16 | Inpatient (IN) ==
[2017-05-03] MEDS ORDERED: SODIUM CHLORIDE 0.9% 1,000 ML IV STA (17:30)
[2017-05-03] MEDS ORDERED: ONDANSETRON 4 MG/2 ML VIAL IV STA (17:30)
[2017-05-03] MEDS ORDERED: ONDANSETRON 4 MG/2 ML VIAL ONE (18:20)
[2017-05-03] MEDS ORDERED: PANTOPRAZOLE 40 MG VIAL IV STA (18:46)
[2017-05-03 18:47] LABS: Basophils % 0.3 % (0.0-0.8); Eosinophils # 1.6 10*3/uL (0.0-0.87); Eosinophils % 11.1 % (0.00-10.9); Hematocrit 26.6 VOL% (35.7-47.0); Hemoglobin 8.7 GM/DL (12.0-16.0); Immature Granulocytes % 0.7 %; Lymphocytes # 1.1 10*3/uL (1.4-4.0); Lymphocytes % 7.4 % (21.3-54.2); Mean Corpuscular HGB Conc 32.7 GM/DL (32-36); Mean Corpuscular Hemoglobin 28 PG (27-34); Mean Corpuscular Volume 85.8 FL (87-102); Mean Platelet Volume 9.1 FL (9.6-12.0); Monocytes % 7.1 % (1.7-12.7); Neutrophils # 10.6 10*3/uL (1.4-7.4); Neutrophils % 73.4 % (38.7-73.9); Platelet Count 429 T/CUMM (130-400); Red Cell Distribution Width 14.8 % (9.3-17.3); White Blood Count 14.4 T/CUMM (4-12)
[2017-05-03 19:03] LABS: INR 1.1; PT Patient Result 11.4 SECS; Partial Thromboplastin Time 29.9 SECS (0-40)
[2017-05-03 19:11] LABS: Eosinophils 7 % (0-10); Hypochromasia Slight; Lymphocytes 8 % (20-55); Platelet Estimate Normal; Segmented Neutrophils 77 % (50-85); Total Cells Counted 100
[2017-05-03] MEDS ORDERED: MORPHINE 2 MG/1 ML SYRINGE IV STA (19:11)
[2017-05-03 19:17] LABS: Ammonia < 10 UMOL/L (11-32)
[2017-05-03] MEDS ORDERED: PANTOPRAZOLE 40 MG VIAL IV ONE (19:19)
[2017-05-03] MEDS ORDERED: MORPHINE 2 MG/1 ML SYRINGE ONE (19:19)
[2017-05-03 19:20] LABS: Albumin 2.9 G/DL (3.4-5.0); Bilirubin,Total 0.4 MG/DL (0.2-1.0); Calcium 9.7 MG/DL (8.5-10.1); Osmolality,Calculated 272.8 MOS/KG (273-304); Potassium 4.6 MMOL/L (3.5-5.1); Total Protein 7.4 G/DL (6.4-8.3)
[2017-05-03 19:21] LABS: Magnesium 2.3 MG/DL (1.8-2.4); Troponin I Only < 0.015 NG/ML (0.00-0.045)
[2017-05-03 20:05] LABS: Apearance,Urine CLEAR (Clear); Bacteria,Urine Occasional /HPF (Few); Bilirubin,Urine Negative (Negative); Blood, Urine Moderate mg/dL (Negative); Glucose,Urine (UA) Negative (Negative); Hyaline Casts,Urine 12 /LPF (0-3); Ketones,Urine Negative (Negative); Mucus,Urine Occasional /LPF (Occasional); Nitrite,Urine Negative (Negative); Protein,Urine Negative; RBC,Urine 19 /HPF (0-4); Urine Color Straw (Yellow); Urine Specific Gravity 1.004 (1.001-1.035); Urine Urobilinogen < 2.0 EU/DL (0.2-1.0); WBC,Urine 6 /HPF (0-6)
[2017-05-03] MEDS ORDERED: cefTRIAXone 1,000 MG in SODIUM CHLORIDE 0.9% 100 ML IV STA (20:06)
[2017-05-03] MEDS ORDERED: cefTRIAXone 1,000 MG VIAL ONE (20:44)
[2017-05-03] MEDS ORDERED: BENZTROPINE 2 MG/2 ML AMP IV PRN (22:13)
[2017-05-03] MEDS ORDERED: MYLANTA/LIDO VISC 2:1 300 ML BOTTLE SWISH/SWAL PRN (22:13)
[2017-05-03] MEDS ORDERED: LOPERAMIDE 2 MG CAPSULE PO PRN ×2 (22:13)
[2017-05-03] MEDS ORDERED: ALUMINUM/MAGNES/SIMETH MAX STR 30 ML UDCUP PO PRN (22:13)
[2017-05-03] MEDS ORDERED: diphenhydrAMINE CAP 25 MG CAPSULE PO PRN (22:13)
[2017-05-03] MEDS ORDERED: LACTULOSE 20 GM/30 ML UDCUP PO PRN (22:13)
[2017-05-03] MEDS ORDERED: traMADol 50 MG TABLET PO PRN (22:13)
[2017-05-03] MEDS ORDERED: ALPRAZolam 0.25 MG TABLET PO PRN (22:13)
[2017-05-03] MEDS ORDERED: MAGNESIUM HYDROXIDE SUSP 30 ML UDCUP PO PRN (22:13)
[2017-05-03] MEDS ORDERED: DEXTROSE 50% 25 GM/50 ML VIAL IV PRN (22:13)
[2017-05-03] MEDS ORDERED: guaiFENesin 200 MG/10 ML UDCUP PO PRN (22:13)
[2017-05-03] MEDS ORDERED: TEMAZEPAM 7.5 MG CAPSULE PO PRN (22:13)
[2017-05-03] MEDS ORDERED: GLUCAGON 1 MG VIAL IM PRN (22:13)
[2017-05-03] MEDS ORDERED: ACETAMINOPHEN 325 MG TABLET PO PRN (22:13)
[2017-05-03] MEDS ORDERED: MYLANTA/LIDO VISC 2:1 300 ML BOTTLE SWISH/SPIT PRN (22:13)
[2017-05-03 22:46] LABS: Basophils % 0.3 % (0.0-0.8); Eosinophils # 1.5 10*3/uL (0.0-0.87); Eosinophils % 11.2 % (0.00-10.9); Hematocrit 24.5 VOL% (35.7-47.0); Immature Granulocytes % 0.7 %; Immature Granulocytes Absolute 0.09 #; Lymphocytes # 1.4 10*3/uL (1.4-4.0); Lymphocytes % 10.4 % (21.3-54.2); Mean Corpuscular HGB Conc 32.7 GM/DL (32-36); Mean Corpuscular Hemoglobin 28 PG (27-34); Mean Corpuscular Volume 84.5 FL (87-102); Mean Platelet Volume 8.7 FL (9.6-12.0); Monocytes % 7.5 % (1.7-12.7); Neutrophils # 9.7 10*3/uL (1.4-7.4); Neutrophils % 69.9 % (38.7-73.9); Platelet Count 393 T/CUMM (130-400); Red Cell Distribution Width 14.6 % (9.3-17.3); White Blood Count 13.8 T/CUMM (4-12)
[2017-05-03 23:04] LABS: INR 1.1; PT Patient Result 11.4 SECS
[2017-05-03 23:14] LABS: Alanine Aminotransferase < 9 U/L (13-56); Albumin 2.6 G/DL (3.4-5.0); Alkaline Phosphatase 87 U/L (45-117); Aspartate Amino Transferase 8 U/L (0-37); Bilirubin,Total < 0.39 MG/DL (0.2-1.0); Blood Urea Nitrogen 9 MG/DL (7-18); Calcium 8.6 MG/DL (8.5-10.1); Glucose 98 MG/DL (74-106); Magnesium 2.1 MG/DL (1.8-2.4); Osmolality,Calculated 275.5 MOS/KG (273-304); Potassium 3.9 MMOL/L (3.5-5.1); Sodium 139 MMOL/L (136-145); Total Protein 6.5 G/DL (6.4-8.3); Uric Acid 4.2 MG/DL (2.6-6.0)
[2017-05-03] MEDS: BRIMONIDINE/TIMOLOL OPH SOLN 5 ML BOTTLE BOTH EYES SCH (23:30)
[2017-05-03] MEDS: PRAVASTATIN 40 MG TABLET PO SCH (23:30)
[2017-05-03] MEDS: cefTRIAXone 1,000 MG in SYRINGE 1 EACH IV SCH (23:31)
[2017-05-04] MEDS: DOCUSATE SODIUM 100 MG CAPSULE PO SCH ×3 (00:34→20:57)
[2017-05-04] MEDS: SODIUM CHLORIDE 0.9% 1,000 ML IV SCH ×2 (00:34→13:26)
[2017-05-04] MEDS: POLYETHYLENE GLYCOL POWDER 17 GM PACK PO SCH ×3 (00:34→20:57)
[2017-05-04] MEDS: INSULIN REGULAR 100 UNIT/ML SUBCUT SCH ×5 (01:11→23:39)
[2017-05-04 05:21] LABS: Amorphous Crystals,Urine Few /HPF (Few); Apearance,Urine Slightly Hazy (Clear); Bacteria,Urine Occasional /HPF (Few); Bilirubin,Urine Negative (Negative); Blood, Urine Negative (Negative); Glucose,Urine (UA) Negative (Negative); Ketones,Urine Negative (Negative); Mucus,Urine Occasional /LPF (Occasional); Nitrite,Urine Negative (Negative); Protein,Urine Negative; RBC,Urine 2 /HPF (0-4); Squamous Epithelial Cell,Urine Occasional /HPF (0-10); Urine Color Straw (Yellow); Urine Specific Gravity 1.006 (1.001-1.035); Urine Urobilinogen < 2.0 EU/DL (0.2-1.0); WBC,Urine 2 /HPF (0-6)
[2017-05-04] MEDS: oxyCODONE/ACETAMINOPHEN 5-325 MG TABLET PO PRN ×2 (05:32→13:24)
[2017-05-04 06:00] LABS: Band Neutrophils 2 % (0-10); Eosinophils 8 % (0-10); Lymphocytes 19 % (20-55); Platelet Estimate Normal; Segmented Neutrophils 61 % (50-85); Total Cells Counted 100
[2017-05-04] MEDS: ONDANSETRON 4 MG/2 ML VIAL IV PRN ×2 (08:09→17:41)
[2017-05-04] MEDS ORDERED: PANTOPRAZOLE 40 MG VIAL IV SCH (09:00)
[2017-05-04] MEDS: BRIMONIDINE/TIMOLOL OPH SOLN 5 ML BOTTLE BOTH EYES SCH ×2 (10:38→20:58)
[2017-05-04] MEDS: METOPROLOL TARTRATE 50 MG TABLET PO SCH (10:38)
[2017-05-04] MEDS: IRON (CARBONYL) 45 MG TABLET PO SCH (10:38)
[2017-05-04] MEDS: FUROSEMIDE 40 MG TABLET PO SCH (10:38)
[2017-05-04] MEDS: MULTIVITAMIN (CENTRUM) TABLET PO SCH (10:39)
[2017-05-04] MEDS: POTASSIUM CHLORIDE 20 MEQ TABLET PO SCH (10:39)
[2017-05-04] MEDS: fentaNYL 75 MCG/HR PATCH TRANSDERM SCH (10:39)
[2017-05-04] MEDS: PRAVASTATIN 40 MG TABLET PO SCH (20:57)
[2017-05-04] MEDS: cefTRIAXone 1,000 MG in SYRINGE 1 EACH IV SCH (23:40)
[2017-05-05] MEDS: oxyCODONE/ACETAMINOPHEN 5-325 MG TABLET PO PRN (00:08)
[2017-05-05] MEDS: SODIUM CHLORIDE 0.9% 1,000 ML IV SCH (00:18)
[2017-05-05 04:37] LABS: Basophils # 0.1 10*3/uL (0.0-0.2); Basophils % 0.4 % (0.0-0.8); Eosinophils # 2.5 10*3/uL (0.0-0.87); Eosinophils % 20.2 % (0.00-10.9); Hematocrit 23.7 VOL% (35.7-47.0); Hemoglobin 7.5 GM/DL (12.0-16.0); Immature Granulocytes % 0.7 %; Immature Granulocytes Absolute 0.09 #; Lymphocytes # 1.4 10*3/uL (1.4-4.0); Lymphocytes % 10.9 % (21.3-54.2); Mean Corpuscular HGB Conc 31.6 GM/DL (32-36); Mean Corpuscular Hemoglobin 28 PG (27-34); Mean Corpuscular Volume 87.1 FL (87-102); Mean Platelet Volume 10.3 FL (9.6-12.0); Monocytes # 0.9 10*3/uL (0.11-0.8); Monocytes % 7.4 % (1.7-12.7); NRBC # 0.02 10*3/uL; Neutrophils # 7.5 10*3/uL (1.4-7.4); Neutrophils % 60.4 % (38.7-73.9); Platelet Count 279 T/CUMM (130-400); Red Blood Count 2.72 MC/CUMM (3.8-5.5); White Blood Count 12.5 T/CUMM (4-12)
[2017-05-05 04:58] LABS: Calcium 8.4 MG/DL (8.5-10.1); Osmolality,Calculated 279.1 MOS/KG (273-304); Potassium 4.1 MMOL/L (3.5-5.1)
[2017-05-05 06:38] LABS: Band Neutrophils 3 % (0-10); Eosinophils 17 % (0-10); Hypochromasia 1+; Lymphocytes 8 % (20-55); Platelet Estimate Adequate; Segmented Neutrophils 67 % (50-85); Total Cells Counted 100
[2017-05-05] MEDS: INSULIN REGULAR 100 UNIT/ML SUBCUT SCH ×2 (07:57→13:01)
[2017-05-05] MEDS: FUROSEMIDE 40 MG TABLET PO SCH (08:38)
[2017-05-05] MEDS: GABAPENTIN 100 MG CAPSULE PO PRN ×2 (08:38→19:42)
[2017-05-05] MEDS: METOPROLOL TARTRATE 50 MG TABLET PO SCH (08:39)
[2017-05-05] MEDS: DOCUSATE SODIUM 100 MG CAPSULE PO SCH ×2 (08:39→21:05)
[2017-05-05] MEDS: POTASSIUM CHLORIDE 20 MEQ TABLET PO SCH (08:39)
[2017-05-05] MEDS: IRON (CARBONYL) 45 MG TABLET PO SCH (08:39)
[2017-05-05] MEDS: ONDANSETRON 4 MG/2 ML VIAL IV PRN ×2 (08:44→22:27)
[2017-05-05] MEDS ORDERED: SODIUM CHLORIDE 0.9% 1,000 ML IV PRN (08:47)
[2017-05-05] MEDS: POLYETHYLENE GLYCOL POWDER 17 GM PACK PO SCH ×2 (09:15→21:05)
[2017-05-05] MEDS: BRIMONIDINE/TIMOLOL OPH SOLN 5 ML BOTTLE BOTH EYES SCH ×2 (09:15→21:05)
[2017-05-05] MEDS: MULTIVITAMIN (CENTRUM) TABLET PO SCH (09:15)
[2017-05-05] MEDS: PANTOPRAZOLE 40 MG TABLET PO SCH (13:01)
[2017-05-05] MEDS: HYDROmorphone 2 MG/1 ML VIAL IV PRN ×4 (17:07→22:22)
[2017-05-05] MEDS: PRAVASTATIN 40 MG TABLET PO SCH (21:05)
[2017-05-05] MEDS: cefTRIAXone 1,000 MG in SYRINGE 1 EACH IV SCH (22:12)
[2017-05-06] MEDS: HYDROmorphone 2 MG/1 ML VIAL IV PRN ×2 (03:47→08:30)
[2017-05-06] MEDS: ONDANSETRON 4 MG/2 ML VIAL IV PRN (03:48)
[2017-05-06 04:48] LABS: Basophils # 0.1 10*3/uL (0.0-0.2); Basophils % 0.5 % (0.0-0.8); Eosinophils # 2.7 10*3/uL (0.0-0.87); Hematocrit 35.5 VOL% (35.7-47.0); Hemoglobin 11.7 GM/DL (12.0-16.0); Immature Granulocytes % 0.5 %; Immature Granulocytes Absolute 0.09 #; Lymphocytes # 1.3 10*3/uL (1.4-4.0); Lymphocytes % 7.6 % (21.3-54.2); Mean Corpuscular Hemoglobin 29 PG (27-34); Mean Corpuscular Volume 87.4 FL (87-102); Mean Platelet Volume 9.5 FL (9.6-12.0); Monocytes # 1.2 10*3/uL (0.11-0.8); Monocytes % 7.3 % (1.7-12.7); Neutrophils # 11.6 10*3/uL (1.4-7.4); Neutrophils % 68.1 % (38.7-73.9); Platelet Count 374 T/CUMM (130-400); Red Blood Count 4.06 MC/CUMM (3.8-5.5); Red Cell Distribution Width 14.7 % (9.3-17.3)
[2017-05-06 05:59] LABS: Band Neutrophils 1 % (0-10); Eosinophils 17 % (0-10); Hypochromasia 1+; Lymphocytes 7 % (20-55); Microcytosis 1+; Segmented Neutrophils 70 % (50-85); Total Cells Counted 100
[2017-05-06 06:00] LABS: Platelet Estimate Normal
[2017-05-06 07:04] LABS: Calcium 8.7 MG/DL (8.5-10.1); Magnesium 2.3 MG/DL (1.8-2.4); Osmolality,Calculated 277.3 MOS/KG (273-304); Potassium 4.4 MMOL/L (3.5-5.1)
[2017-05-06] MEDS: DOCUSATE SODIUM 100 MG CAPSULE PO SCH ×2 (08:20→20:46)
[2017-05-06] MEDS: GABAPENTIN 100 MG CAPSULE PO PRN ×3 (08:20→20:46)
[2017-05-06] MEDS: METOPROLOL TARTRATE 50 MG TABLET PO SCH (08:21)
[2017-05-06] MEDS: MULTIVITAMIN (CENTRUM) TABLET PO SCH (08:21)
[2017-05-06] MEDS: BRIMONIDINE/TIMOLOL OPH SOLN 5 ML BOTTLE BOTH EYES SCH ×2 (08:21→20:46)
[2017-05-06] MEDS: FUROSEMIDE 40 MG TABLET PO SCH (08:21)
[2017-05-06] MEDS: IRON (CARBONYL) 45 MG TABLET PO SCH (08:21)
[2017-05-06] MEDS: POTASSIUM CHLORIDE 20 MEQ TABLET PO SCH (08:21)
[2017-05-06] MEDS: PANTOPRAZOLE 40 MG TABLET PO SCH (08:21)
[2017-05-06] MEDS: POLYETHYLENE GLYCOL POWDER 17 GM PACK PO SCH ×2 (08:23→20:46)
[2017-05-06] MEDS ORDERED: fentaNYL 25 MCG/HR PATCH TRANSDERM SCH (09:00)
[2017-05-06] MEDS: PRAVASTATIN 40 MG TABLET PO SCH (20:46)
[2017-05-06] MEDS: cefTRIAXone 1,000 MG in SYRINGE 1 EACH IV SCH (23:49)
[2017-05-07 06:16] LABS: Basophils # 0.1 10*3/uL (0.0-0.2); Basophils % 0.4 % (0.0-0.8); Eosinophils # 2.6 10*3/uL (0.0-0.87); Eosinophils % 17.9 % (0.00-10.9); Hematocrit 36.6 VOL% (35.7-47.0); Hemoglobin 12.1 GM/DL (12.0-16.0); Immature Granulocytes % 0.5 %; Immature Granulocytes Absolute 0.07 #; Lymphocytes # 1.2 10*3/uL (1.4-4.0); Lymphocytes % 8.5 % (21.3-54.2); Mean Corpuscular HGB Conc 33.1 GM/DL (32-36); Mean Corpuscular Hemoglobin 29 PG (27-34); Mean Corpuscular Volume 87.4 FL (87-102); Mean Platelet Volume 8.8 FL (9.6-12.0); Monocytes # 0.9 10*3/uL (0.11-0.8); Monocytes % 6.4 % (1.7-12.7); Neutrophils # 9.6 10*3/uL (1.4-7.4); Neutrophils % 66.3 % (38.7-73.9); Platelet Count 371 T/CUMM (130-400); Red Blood Count 4.19 MC/CUMM (3.8-5.5); Red Cell Distribution Width 14.8 % (9.3-17.3); White Blood Count 14.5 T/CUMM (4-12)
[2017-05-07 06:35] LABS: Calcium 9.2 MG/DL (8.5-10.1); Magnesium 2.2 MG/DL (1.8-2.4); Osmolality,Calculated 273.7 MOS/KG (273-304); Potassium 4.5 MMOL/L (3.5-5.1)
[2017-05-07 07:09] LABS: Band Neutrophils 4 % (0-10); Eosinophils 16 % (0-10); Lymphocytes 6 % (20-55); Platelet Estimate Normal; Segmented Neutrophils 68 % (50-85); Total Cells Counted 100
[2017-05-07] MEDS: MULTIVITAMIN (CENTRUM) TABLET PO SCH (09:18)
[2017-05-07] MEDS: GABAPENTIN 100 MG CAPSULE PO PRN ×3 (09:18→20:58)
[2017-05-07] MEDS: POTASSIUM CHLORIDE 20 MEQ TABLET PO SCH (09:18)
[2017-05-07] MEDS: METOPROLOL TARTRATE 50 MG TABLET PO SCH (09:18)
[2017-05-07] MEDS: FUROSEMIDE 40 MG TABLET PO SCH (09:18)
[2017-05-07] MEDS: DOCUSATE SODIUM 100 MG CAPSULE PO SCH ×2 (09:18→20:58)
[2017-05-07] MEDS: PANTOPRAZOLE 40 MG TABLET PO SCH (09:18)
[2017-05-07] MEDS: IRON (CARBONYL) 45 MG TABLET PO SCH (09:18)
[2017-05-07] MEDS: POLYETHYLENE GLYCOL POWDER 17 GM PACK PO SCH ×2 (09:19→20:58)
[2017-05-07] MEDS: fentaNYL 75 MCG/HR PATCH TRANSDERM SCH (09:19)
[2017-05-07] MEDS: BRIMONIDINE/TIMOLOL OPH SOLN 5 ML BOTTLE BOTH EYES SCH ×2 (09:37→21:00)
[2017-05-07 11:53] LABS: Alanine Aminotransferase < 9 U/L (13-56); Albumin 2.3 G/DL (3.4-5.0); Alkaline Phosphatase 84 U/L (45-117); Aspartate Amino Transferase 12 U/L (0-37); Bilirubin,Total < 0.39 MG/DL (0.2-1.0); Blood Urea Nitrogen 9 MG/DL (7-18); Calcium 8.6 MG/DL (8.5-10.1); Glucose 99 MG/DL (74-106); Osmolality,Calculated 277.4 MOS/KG (273-304); Potassium 4.4 MMOL/L (3.5-5.1); Sodium 140 MMOL/L (136-145)
[2017-05-07] MEDS: MAGNESIUM HYDROXIDE SUSP 30 ML UDCUP PO PRN ×2 (16:27→18:41)
[2017-05-07] MEDS: PRAVASTATIN 40 MG TABLET PO SCH (20:58)
[2017-05-07] MEDS: cefTRIAXone 1,000 MG in SYRINGE 1 EACH IV SCH (22:26)
[2017-05-08] MEDS: oxyCODONE/ACETAMINOPHEN 5-325 MG TABLET PO PRN ×2 (03:58→15:25)
[2017-05-08 06:19] LABS: Basophils # 0.1 10*3/uL (0.0-0.2); Basophils % 0.4 % (0.0-0.8); Eosinophils # 2.6 10*3/uL (0.0-0.87); Eosinophils % 17.6 % (0.00-10.9); Hematocrit 34.9 VOL% (35.7-47.0); Hemoglobin 11.5 GM/DL (12.0-16.0); Immature Granulocytes % 0.5 %; Immature Granulocytes Absolute 0.08 #; Lymphocytes % 6.6 % (21.3-54.2); Mean Corpuscular Hemoglobin 29 PG (27-34); Mean Corpuscular Volume 87.5 FL (87-102); Monocytes # 1.1 10*3/uL (0.11-0.8); Monocytes % 7.4 % (1.7-12.7); Neutrophils # 9.9 10*3/uL (1.4-7.4); Neutrophils % 67.5 % (38.7-73.9); Platelet Count 342 T/CUMM (130-400); Red Blood Count 3.99 MC/CUMM (3.8-5.5); Red Cell Distribution Width 14.8 % (9.3-17.3); White Blood Count 14.7 T/CUMM (4-12)
[2017-05-08 06:45] LABS: Eosinophils 20 % (0-10); Hypochromasia 1+; Lymphocytes 6 % (20-55); Ovalocytes Slight; Platelet Estimate Adequate; Segmented Neutrophils 63 % (50-85); Total Cells Counted 100
[2017-05-08 06:47] LABS: Microcytosis Slight
[2017-05-08] MEDS: POTASSIUM CHLORIDE 20 MEQ TABLET PO SCH (08:59)
[2017-05-08] MEDS: PANTOPRAZOLE 40 MG TABLET PO SCH (08:59)
[2017-05-08] MEDS: DOCUSATE SODIUM 100 MG CAPSULE PO SCH ×2 (08:59→20:12)
[2017-05-08] MEDS: POLYETHYLENE GLYCOL POWDER 17 GM PACK PO SCH ×2 (08:59→20:13)
[2017-05-08] MEDS: GABAPENTIN 100 MG CAPSULE PO PRN ×3 (08:59→20:12)
[2017-05-08] MEDS: IRON (CARBONYL) 45 MG TABLET PO SCH (08:59)
[2017-05-08] MEDS: MULTIVITAMIN (CENTRUM) TABLET PO SCH (08:59)
[2017-05-08] MEDS: FUROSEMIDE 40 MG TABLET PO SCH (08:59)
[2017-05-08] MEDS: BRIMONIDINE/TIMOLOL OPH SOLN 5 ML BOTTLE BOTH EYES SCH ×2 (09:00→20:14)
[2017-05-08] MEDS ORDERED: fentaNYL 100 MCG/HR PATCH TRANSDERM SCH (09:00)
[2017-05-08] MEDS: METOPROLOL TARTRATE 50 MG TABLET PO SCH (09:00)
[2017-05-08] MEDS: PRAVASTATIN 40 MG TABLET PO SCH (20:12)
[2017-05-08] MEDS: HYDROmorphone 2 MG/1 ML VIAL IV PRN ×2 (20:17→23:35)
[2017-05-08] MEDS: cefTRIAXone 1,000 MG in SYRINGE 1 EACH IV SCH (21:35)
[2017-05-09] MEDS: HYDROmorphone 2 MG/1 ML VIAL IV PRN (04:40)
[2017-05-09] MEDS: POTASSIUM CHLORIDE 20 MEQ TABLET PO SCH (09:17)
[2017-05-09] MEDS: PANTOPRAZOLE 40 MG TABLET PO SCH (09:17)
[2017-05-09] MEDS: MULTIVITAMIN (CENTRUM) TABLET PO SCH (09:17)
[2017-05-09] MEDS: IRON (CARBONYL) 45 MG TABLET PO SCH (09:17)
[2017-05-09] MEDS: METOPROLOL TARTRATE 50 MG TABLET PO SCH (09:17)
[2017-05-09] MEDS: FUROSEMIDE 40 MG TABLET PO SCH (09:17)
[2017-05-09] MEDS: oxyCODONE/ACETAMINOPHEN 5-325 MG TABLET PO PRN (09:17)
[2017-05-09] MEDS: DOCUSATE SODIUM 100 MG CAPSULE PO SCH (09:17)
[2017-05-09] MEDS: POLYETHYLENE GLYCOL POWDER 17 GM PACK PO SCH (09:17)
[2017-05-09] MEDS: BRIMONIDINE/TIMOLOL OPH SOLN 5 ML BOTTLE BOTH EYES SCH (09:21)
[2017-05-09 09:30] VITALS: BP 114/68
[2017-05-09] MEDS: ONDANSETRON 4 MG/2 ML VIAL IV PRN (11:13)
== END 2017-05-09 11:20 | disposition home health service (06) | DRG 813 ==
LOC: N.ED 17:16 → N.EDINP 20:21 → N.4E 20:48
PROVIDERS: ADMIT Specialist; ATTEND Specialist

== ENCOUNTER 2017-05-18 18:33 | Inpatient (IN) ==
[2017-05-18] MEDS ORDERED: ALBUTEROL/IPRATROPIUM 3 ML NEB RESP TX STA (19:15)
[2017-05-18] MEDS ORDERED: ONDANSETRON 4 MG/2 ML VIAL IV STA (19:15)
[2017-05-18] MEDS ORDERED: methylPREDNISolone SOD SUC 125 MG/2 ML VIAL IV STA (19:15)
[2017-05-18] MEDS ORDERED: SODIUM CHLORIDE 0.9% 500 ML IV STA (19:15)
[2017-05-18] MEDS ORDERED: cefTRIAXone 1,000 MG in SODIUM CHLORIDE 0.9% 100 ML IV STA (19:15)
[2017-05-18] MEDS ORDERED: LORazepam 2 MG/1 ML VIAL IV STA (19:15)
[2017-05-18 20:47] LABS: Basophils % 0.3 % (0.0-0.8); Eosinophils # 0.5 10*3/uL (0.0-0.87); Eosinophils % 8.4 % (0.00-10.9); Hematocrit 39.4 VOL% (35.7-47.0); Hemoglobin 13.2 GM/DL (12.0-16.0); Immature Granulocytes % 0.3 %; Immature Granulocytes Absolute 0.02 #; Lymphocytes # 0.6 10*3/uL (1.4-4.0); Lymphocytes % 8.8 % (21.3-54.2); Mean Corpuscular HGB Conc 33.5 GM/DL (32-36); Mean Corpuscular Hemoglobin 29 PG (27-34); Mean Corpuscular Volume 85.3 FL (87-102); Mean Platelet Volume 9.6 FL (9.6-12.0); Monocytes # 0.2 10*3/uL (0.11-0.8); Neutrophils # 5.1 10*3/uL (1.4-7.4); Neutrophils % 79.2 % (38.7-73.9); Platelet Count 300 T/CUMM (130-400); Red Blood Count 4.62 MC/CUMM (3.8-5.5); Red Cell Distribution Width 14.2 % (9.3-17.3); White Blood Count 6.4 T/CUMM (4-12)
[2017-05-18] MEDS ORDERED: LORazepam 2 MG/1 ML VIAL ONE (20:50)
[2017-05-18] MEDS ORDERED: ONDANSETRON 4 MG/2 ML VIAL ONE (20:51)
[2017-05-18] MEDS ORDERED: cefTRIAXone 1,000 MG VIAL ONE (20:51)
[2017-05-18] MEDS ORDERED: methylPREDNISolone SOD SUC 125 MG/2 ML VIAL ONE (20:52)
[2017-05-18 20:54] LABS: PT Patient Result 10.9 SECS
[2017-05-18 21:04] LABS: Lactic Acid 1.3 MMOL/L (0.4-2.0)
[2017-05-18 21:07] LABS: Albumin 3.1 G/DL (3.4-5.0); Bilirubin,Total 0.9 MG/DL (0.2-1.0); Calcium 9.7 MG/DL (8.5-10.1); Magnesium 1.6 MG/DL (1.8-2.4); Potassium 3.4 MMOL/L (3.5-5.1); Total Protein 7.5 G/DL (6.4-8.3)
[2017-05-18 21:12] LABS: Troponin I Only 0.269 NG/ML (0.00-0.045)
[2017-05-18] MEDS ORDERED: MAGNESIUM SULF RIDER 2 GM in PREMIX 1 EACH IV STA (21:15)
[2017-05-18] MEDS ORDERED: ASPIRIN EC 325 MG TABLET PO STA (21:20)
[2017-05-18] MEDS ORDERED: MAGNESIUM SULF RIDER 50 ML IV ONE (21:27)
[2017-05-18] MEDS ORDERED: ASPIRIN 325 MG TABLET ONE (21:27)
[2017-05-18] MEDS ORDERED: ENOXAPARIN 100 MG/ML SYRINGE SUBCUT STA (21:46)
[2017-05-18] MEDS ORDERED: ENOXAPARIN 100 MG/ML SYRINGE SUBCUT ONE (22:19)
[2017-05-18 22:38] LABS: Apearance,Urine Slightly Hazy (Clear); Bilirubin,Urine Negative (Negative); Blood, Urine Negative (Negative); Glucose,Urine (UA) Negative (Negative); Ketones,Urine Negative (Negative); Mucus,Urine Occasional /LPF (Occasional); Nitrite,Urine Negative (Negative); Protein,Urine 100 MG/DL; RBC,Urine 12 /HPF (0-4); Urine Color Yellow (Yellow); Urine Specific Gravity 1.008 (1.001-1.035); Urine Urobilinogen < 2.0 EU/DL (0.2-1.0); WBC,Urine 1 /HPF (0-6)
[2017-05-18] MEDS ORDERED: guaiFENesin 200 MG/10 ML UDCUP PO PRN (23:58)
[2017-05-18] MEDS ORDERED: LACTULOSE 20 GM/30 ML UDCUP PO PRN (23:58)
[2017-05-18] MEDS ORDERED: TEMAZEPAM 7.5 MG CAPSULE PO PRN (23:58)
[2017-05-18] MEDS ORDERED: ALUMINUM/MAGNES/SIMETH MAX STR 30 ML UDCUP PO PRN (23:58)
[2017-05-18] MEDS ORDERED: ALPRAZolam 0.25 MG TABLET PO PRN (23:58)
[2017-05-18] MEDS ORDERED: PROMETHAZINE INJ 25 MG in SODIUM CHLORIDE 0.9% 50 ML IV PRN (23:58)
[2017-05-18] MEDS ORDERED: MYLANTA/LIDO VISC 2:1 300 ML BOTTLE SWISH/SPIT PRN (23:58)
[2017-05-18] MEDS ORDERED: ACETAMINOPHEN 325 MG TABLET PO PRN (23:58)
[2017-05-18] MEDS ORDERED: traMADol 50 MG TABLET PO PRN (23:58)
[2017-05-18] MEDS ORDERED: ALBUTEROL/IPRATROPIUM 3 ML NEB RESP TX PRN (23:58)
[2017-05-18] MEDS ORDERED: diphenhydrAMINE CAP 25 MG CAPSULE PO PRN (23:58)
[2017-05-18] MEDS ORDERED: ONDANSETRON 4 MG/2 ML VIAL IV PRN (23:58)
[2017-05-18] MEDS ORDERED: LOPERAMIDE 2 MG CAPSULE PO PRN ×2 (23:58)
[2017-05-18] MEDS ORDERED: MYLANTA/LIDO VISC 2:1 300 ML BOTTLE SWISH/SWAL PRN (23:58)
[2017-05-18] MEDS ORDERED: MAGNESIUM HYDROXIDE SUSP 30 ML UDCUP PO PRN (23:58)
[2017-05-19] MEDS: SODIUM CHLORIDE 0.9% 1,000 ML IV SCH ×2 (00:30→15:10)
[2017-05-19] MEDS: SULFAMETHOX/TRIMETHOPRIM 800-160 MG TABLET PO SCH ×3 (00:30→23:31)
[2017-05-19] MEDS: CIPROFLOXACIN 500 MG TABLET PO SCH ×2 (00:30→11:30)
[2017-05-19] MEDS: AMOXICILLIN/CLAV 875 MG TABLET PO SCH ×3 (00:30→23:30)
[2017-05-19] MEDS: fentaNYL 50 MCG/HR PATCH TRANSDERM SCH (00:31)
[2017-05-19 01:10] LABS: Basophils % 0.1 % (0.0-0.8); Eosinophils # 0.1 10*3/uL (0.0-0.87); Eosinophils % 1.2 % (0.00-10.9); Hemoglobin 11.9 GM/DL (12.0-16.0); Immature Granulocytes % 0.4 %; Immature Granulocytes Absolute 0.03 #; Lymphocytes # 0.5 10*3/uL (1.4-4.0); Lymphocytes % 5.9 % (21.3-54.2); Mean Corpuscular HGB Conc 33.1 GM/DL (32-36); Mean Corpuscular Hemoglobin 28 PG (27-34); Mean Corpuscular Volume 85.5 FL (87-102); Mean Platelet Volume 10.1 FL (9.6-12.0); Monocytes # 0.1 10*3/uL (0.11-0.8); Monocytes % 0.7 % (1.7-12.7); Neutrophils # 7.4 10*3/uL (1.4-7.4); Neutrophils % 91.7 % (38.7-73.9); Platelet Count 330 T/CUMM (130-400); Red Blood Count 4.21 MC/CUMM (3.8-5.5); Red Cell Distribution Width 14.1 % (9.3-17.3)
[2017-05-19 01:38] LABS: Albumin 3.2 G/DL (3.4-5.0); Bilirubin,Total 0.6 MG/DL (0.2-1.0); Calcium 9.4 MG/DL (8.5-10.1); Magnesium 2.5 MG/DL (1.8-2.4); Osmolality,Calculated 270.1 MOS/KG (273-304); Potassium 3.8 MMOL/L (3.5-5.1); Total Protein 7.9 G/DL (6.4-8.3); Uric Acid 4.4 MG/DL (2.6-6.0)
[2017-05-19 01:40] LABS: Troponin I Only 0.285 NG/ML (0.00-0.045)
[2017-05-19 02:13] LABS: Band Neutrophils 6 % (0-10); Lymphocytes 5 % (20-55); Metamyelocytes 2 %; Myelocytes 1 %; Segmented Neutrophils 85 % (50-85); Total Cells Counted 100
[2017-05-19 02:14] LABS: Hypochromasia 1+; Platelet Estimate Normal
[2017-05-19 05:49] LABS: Apearance,Urine CLEAR (Clear); Bilirubin,Urine Negative (Negative); Blood, Urine Negative (Negative); Glucose,Urine (UA) Negative (Negative); Hyaline Casts,Urine 4 /LPF (0-3); Ketones,Urine Negative (Negative); Mucus,Urine Occasional /LPF (Occasional); Nitrite,Urine Negative (Negative); Protein,Urine Negative; Squamous Epithelial Cell,Urine Occasional /HPF (0-10); Urine Color Yellow (Yellow); Urine Specific Gravity 1.006 (1.001-1.035); Urine Urobilinogen < 2.0 EU/DL (0.2-1.0)
[2017-05-19] MEDS: PANTOPRAZOLE 40 MG TABLET PO SCH (08:30)
[2017-05-19] MEDS: GABAPENTIN 100 MG CAPSULE PO SCH ×3 (08:30→21:03)
[2017-05-19] MEDS: DOCUSATE SODIUM 100 MG CAPSULE PO SCH ×2 (08:30→21:03)
[2017-05-19] MEDS: FUROSEMIDE 40 MG TABLET PO SCH (08:30)
[2017-05-19] MEDS: METOPROLOL TARTRATE 50 MG TABLET PO SCH (08:30)
[2017-05-19] MEDS: ASPIRIN EC 325 MG TABLET PO SCH (08:30)
[2017-05-19] MEDS ORDERED: PANTOPRAZOLE 40 MG VIAL IV SCH (09:00)
[2017-05-19 10:23] LABS: Troponin I Only 0.154 NG/ML (0.00-0.045)
[2017-05-19] MEDS ORDERED: HYDROmorphone 2 MG TABLET PO PRN (12:44)
[2017-05-19] MEDS: POLYETHYLENE GLYCOL POWDER 17 GM PACK PO SCH ×2 (13:11→21:03)
[2017-05-19] MEDS: BRIMONIDINE/TIMOLOL OPH SOLN 5 ML BOTTLE BOTH EYES SCH (21:03)
[2017-05-19] MEDS: PRAVASTATIN 40 MG TABLET PO SCH (21:03)
[2017-05-20] MEDS: SODIUM CHLORIDE 0.9% 1,000 ML IV SCH ×2 (03:06→17:31)
[2017-05-20 05:23] LABS: Risk Ratio 2.88; VLDL CHOLESTEROL 30.8 MG/DL
[2017-05-20] MEDS: FUROSEMIDE 40 MG TABLET PO SCH (10:28)
[2017-05-20] MEDS: DOCUSATE SODIUM 100 MG CAPSULE PO SCH ×2 (10:28→21:25)
[2017-05-20] MEDS: METOPROLOL TARTRATE 50 MG TABLET PO SCH (10:28)
[2017-05-20] MEDS: GABAPENTIN 100 MG CAPSULE PO SCH ×3 (10:28→21:25)
[2017-05-20] MEDS: PANTOPRAZOLE 40 MG TABLET PO SCH (10:28)
[2017-05-20] MEDS: ASPIRIN EC 325 MG TABLET PO SCH (10:29)
[2017-05-20] MEDS: POLYETHYLENE GLYCOL POWDER 17 GM PACK PO SCH ×2 (10:29→21:25)
[2017-05-20] MEDS: BRIMONIDINE/TIMOLOL OPH SOLN 5 ML BOTTLE BOTH EYES SCH ×2 (10:29→21:25)
[2017-05-20] MEDS: SULFAMETHOX/TRIMETHOPRIM 800-160 MG TABLET PO SCH (11:59)
[2017-05-20] MEDS: AMOXICILLIN/CLAV 875 MG TABLET PO SCH (11:59)
[2017-05-20] MEDS ORDERED: PHENYLEPH/MINERAL OIL/PETROLAT 57 GM TUBE TOP PRN (13:35)
[2017-05-20] MEDS: PRAVASTATIN 40 MG TABLET PO SCH (21:25)
[2017-05-21] MEDS: AMOXICILLIN/CLAV 875 MG TABLET PO SCH ×3 (00:45→23:45)
[2017-05-21] MEDS: SULFAMETHOX/TRIMETHOPRIM 800-160 MG TABLET PO SCH ×3 (00:45→23:45)
[2017-05-21] MEDS: SODIUM CHLORIDE 0.9% 1,000 ML IV SCH (05:09)
[2017-05-21] MEDS: POLYETHYLENE GLYCOL POWDER 17 GM PACK PO SCH ×2 (09:40→21:17)
[2017-05-21] MEDS: FUROSEMIDE 40 MG TABLET PO SCH (09:43)
[2017-05-21] MEDS: GABAPENTIN 100 MG CAPSULE PO SCH ×3 (09:43→21:17)
[2017-05-21] MEDS: PANTOPRAZOLE 40 MG TABLET PO SCH (09:43)
[2017-05-21] MEDS: DOCUSATE SODIUM 100 MG CAPSULE PO SCH ×2 (09:43→21:17)
[2017-05-21] MEDS: BRIMONIDINE/TIMOLOL OPH SOLN 5 ML BOTTLE BOTH EYES SCH ×2 (09:44→21:17)
[2017-05-21] MEDS: ASPIRIN EC 325 MG TABLET PO SCH (09:44)
[2017-05-21] MEDS: METOPROLOL TARTRATE 50 MG TABLET PO SCH (09:44)
[2017-05-21] MEDS: PROCHLORPERAZINE 10 MG TABLET PO PRN (12:07)
[2017-05-21] MEDS ORDERED: HYDROCORTISONE 2.5% RECTAL CREAM 30 GM TUBE TOP PRN (13:14)
[2017-05-21] MEDS: PRAVASTATIN 40 MG TABLET PO SCH (21:17)
[2017-05-21] MEDS: fentaNYL 50 MCG/HR PATCH TRANSDERM SCH (23:45)
[2017-05-22] MEDS: FUROSEMIDE 40 MG TABLET PO SCH (09:28)
[2017-05-22] MEDS: METOPROLOL TARTRATE 50 MG TABLET PO SCH (09:28)
[2017-05-22] MEDS: GABAPENTIN 100 MG CAPSULE PO SCH ×3 (09:28→20:55)
[2017-05-22] MEDS: DOCUSATE SODIUM 100 MG CAPSULE PO SCH ×2 (09:29→20:55)
[2017-05-22] MEDS: POLYETHYLENE GLYCOL POWDER 17 GM PACK PO SCH ×2 (09:29→20:56)
[2017-05-22] MEDS: BRIMONIDINE/TIMOLOL OPH SOLN 5 ML BOTTLE BOTH EYES SCH ×2 (09:29→20:58)
[2017-05-22] MEDS: PANTOPRAZOLE 40 MG TABLET PO SCH (09:29)
[2017-05-22] MEDS: ASPIRIN EC 325 MG TABLET PO SCH (09:29)
[2017-05-22] MEDS: PROCHLORPERAZINE 10 MG TABLET PO PRN (10:47)
[2017-05-22] MEDS: AMOXICILLIN/CLAV 875 MG TABLET PO SCH (13:19)
[2017-05-22] MEDS: SULFAMETHOX/TRIMETHOPRIM 800-160 MG TABLET PO SCH (13:19)
[2017-05-22] MEDS ORDERED: PROMETHAZINE 25 MG/1 ML VIAL IM PRN (20:01)
[2017-05-22] MEDS: PRAVASTATIN 40 MG TABLET PO SCH (20:55)
[2017-05-22] MEDS: PROMETHAZINE 25 MG TABLET PO PRN (20:55)
[2017-05-23] MEDS: AMOXICILLIN/CLAV 875 MG TABLET PO SCH ×3 (00:02→23:32)
[2017-05-23] MEDS: SULFAMETHOX/TRIMETHOPRIM 800-160 MG TABLET PO SCH ×3 (00:03→23:32)
[2017-05-23] MEDS: PROMETHAZINE 25 MG TABLET PO PRN (04:21)
[2017-05-23 05:51] LABS: Basophils % 0.6 % (0.0-0.8); Eosinophils # 0.9 10*3/uL (0.0-0.87); Eosinophils % 12.9 % (0.00-10.9); Hematocrit 32.7 VOL% (35.7-47.0); Hemoglobin 10.6 GM/DL (12.0-16.0); Immature Granulocytes % 0.6 %; Immature Granulocytes Absolute 0.04 #; Lymphocytes # 1.1 10*3/uL (1.4-4.0); Lymphocytes % 16.1 % (21.3-54.2); Mean Corpuscular HGB Conc 32.4 GM/DL (32-36); Mean Corpuscular Hemoglobin 28 PG (27-34); Mean Corpuscular Volume 87.4 FL (87-102); Mean Platelet Volume 9.9 FL (9.6-12.0); Monocytes # 0.4 10*3/uL (0.11-0.8); Monocytes % 6.2 % (1.7-12.7); Neutrophils # 4.3 10*3/uL (1.4-7.4); Neutrophils % 63.6 % (38.7-73.9); Platelet Count 272 T/CUMM (130-400); Red Blood Count 3.74 MC/CUMM (3.8-5.5); Red Cell Distribution Width 14.4 % (9.3-17.3); White Blood Count 6.8 T/CUMM (4-12)
[2017-05-23 06:15] LABS: Eosinophils 11 % (0-10); Giant Platelets Few; Hypochromasia 1+; Lymphocytes 12 % (20-55); Microcytosis Slight; Platelet Estimate Adequate; Segmented Neutrophils 74 % (50-85); Total Cells Counted 100
[2017-05-23 06:22] LABS: Albumin 2.6 G/DL (3.4-5.0); Bilirubin,Total 0.7 MG/DL (0.2-1.0); Calcium 8.8 MG/DL (8.5-10.1); Magnesium 1.9 MG/DL (1.8-2.4); Potassium 4.2 MMOL/L (3.5-5.1); Total Protein 6.7 G/DL (6.4-8.3)
[2017-05-23] MEDS: ASPIRIN EC 325 MG TABLET PO SCH (08:51)
[2017-05-23] MEDS: POLYETHYLENE GLYCOL POWDER 17 GM PACK PO SCH ×2 (08:51→20:44)
[2017-05-23] MEDS: PANTOPRAZOLE 40 MG TABLET PO SCH (08:51)
[2017-05-23] MEDS: DOCUSATE SODIUM 100 MG CAPSULE PO SCH ×2 (08:51→20:43)
[2017-05-23] MEDS: METOPROLOL TARTRATE 50 MG TABLET PO SCH (08:51)
[2017-05-23] MEDS: FUROSEMIDE 40 MG TABLET PO SCH (08:51)
[2017-05-23] MEDS: GABAPENTIN 100 MG CAPSULE PO SCH ×3 (08:52→20:43)
[2017-05-23] MEDS: BRIMONIDINE/TIMOLOL OPH SOLN 5 ML BOTTLE BOTH EYES SCH ×2 (08:53→20:44)
[2017-05-23] MEDS: PRAVASTATIN 40 MG TABLET PO SCH (20:44)
[2017-05-24] MEDS: GABAPENTIN 100 MG CAPSULE PO SCH ×2 (09:13→14:31)
[2017-05-24] MEDS: FUROSEMIDE 40 MG TABLET PO SCH (09:13)
[2017-05-24] MEDS: METOPROLOL TARTRATE 50 MG TABLET PO SCH (09:13)
[2017-05-24] MEDS: BRIMONIDINE/TIMOLOL OPH SOLN 5 ML BOTTLE BOTH EYES SCH (09:14)
[2017-05-24] MEDS: PANTOPRAZOLE 40 MG TABLET PO SCH (09:14)
[2017-05-24] MEDS: POLYETHYLENE GLYCOL POWDER 17 GM PACK PO SCH (09:14)
[2017-05-24] MEDS: ASPIRIN EC 325 MG TABLET PO SCH (09:14)
[2017-05-24] MEDS: DOCUSATE SODIUM 100 MG CAPSULE PO SCH (09:14)
[2017-05-24] MEDS: SULFAMETHOX/TRIMETHOPRIM 800-160 MG TABLET PO SCH (12:36)
[2017-05-24] MEDS: AMOXICILLIN/CLAV 875 MG TABLET PO SCH (12:36)
[2017-05-24 15:56] VITALS: BP 114/67
== END 2017-05-24 16:35 | disposition home or self-care (01) | DRG 204 ==
LOC: N.ED 18:33 → N.EDINP 21:46 → N.TELEN 22:46
PROVIDERS: ADMIT Specialist; ATTEND Specialist

== ENCOUNTER 2017-06-30 10:35 | Inpatient (IN) ==
[2017-06-30 13:43] LABS: Eosinophils % 1.1 % (0.00-10.9); Hematocrit 22.1 VOL% (35.7-47.0); Immature Granulocytes % 0.5 %; Immature Granulocytes Absolute 0.01 #; Lymphocytes # 0.4 10*3/uL (1.4-4.0); Lymphocytes % 21.5 % (21.3-54.2); Mean Corpuscular HGB Conc 31.7 GM/DL (32-36); Mean Corpuscular Hemoglobin 29 PG (27-34); Mean Corpuscular Volume 91.3 FL (87-102); Mean Platelet Volume 9.9 FL (9.6-12.0); Monocytes # 0.2 10*3/uL (0.11-0.8); Monocytes % 8.1 % (1.7-12.7); Neutrophils # 1.3 10*3/uL (1.4-7.4); Neutrophils % 68.8 % (38.7-73.9); Platelet Count 142 T/CUMM (130-400); Red Blood Count 2.42 MC/CUMM (3.8-5.5); Red Cell Distribution Width 17.6 % (9.3-17.3); White Blood Count 1.9 T/CUMM (4-12)
[2017-06-30 14:12] LABS: Apearance,Urine CLOUDY (Clear); Bacteria,Urine Occasional /HPF (Few); Bilirubin,Urine Negative (Negative); Blood, Urine Small mg/dL (Negative); Glucose,Urine (UA) Negative (Negative); Ketones,Urine Negative (Negative); Mucus,Urine Occasional /LPF (Occasional); Nitrite,Urine Positive (Negative); Protein,Urine 100 MG/DL; RBC,Urine 58 /HPF (0-4); Urine Color Yellow (Yellow); Urine Specific Gravity 1.011 (1.001-1.035); Urine Urobilinogen < 2.0 EU/DL (0.2-1.0); WBC,Urine 262 /HPF (0-6)
[2017-06-30 14:19] LABS: Albumin 2.6 G/DL (3.4-5.0); Bilirubin,Total 0.4 MG/DL (0.2-1.0); Calcium 8.5 MG/DL (8.5-10.1); Total Protein 6.2 G/DL (6.4-8.3)
[2017-06-30 14:20] LABS: Osmolality,Calculated 271.8 MOS/KG (273-304); Potassium 3.7 MMOL/L (3.5-5.1)
[2017-06-30 14:25] LABS: Band Neutrophils 4 % (0-10); Eosinophils 2 % (0-10); Lymphocytes 24 % (20-55); Platelet Estimate Adequate; Segmented Neutrophils 65 % (50-85); Total Cells Counted 100
[2017-06-30 14:26] LABS: Hypochromasia 1+
[2017-06-30 15:18] LABS: Bacteria Wet Mount Rare /HPF; Clue Cells None Seen /HPF (None Seen); Epithelial Cell Wet Mount Rare /HPF (Few/HPF); RBC Wet Mount Moderate /HPF; Trichomonas Wet Mount None Seen /HPF (None Seen); WBC Wet Mount Rare /HPF; Yeast Wet Mount None Seen /HPF (None Seen)
[2017-06-30] MEDS ORDERED: SODIUM CHLORIDE 0.9% 1,000 ML IV STA (15:23)
[2017-06-30] MEDS ORDERED: SODIUM CHLORIDE 0.9% 1,000 ML IV PRN (15:25)
[2017-06-30] MEDS ORDERED: cefTRIAXone 1,000 MG in SODIUM CHLORIDE 0.9% 100 ML IV STA (15:37)
[2017-06-30] MEDS ORDERED: cefTRIAXone 1,000 MG VIAL ONE (15:38)
[2017-06-30] MEDS ORDERED: LACTULOSE 20 GM/30 ML UDCUP PO PRN (18:59)
[2017-06-30] MEDS ORDERED: guaiFENesin 200 MG/10 ML UDCUP PO PRN (18:59)
[2017-06-30] MEDS ORDERED: MYLANTA/LIDO VISC 2:1 300 ML BOTTLE SWISH/SWAL PRN (18:59)
[2017-06-30] MEDS ORDERED: PROMETHAZINE INJ 25 MG in SODIUM CHLORIDE 0.9% 50 ML IV PRN (18:59)
[2017-06-30] MEDS ORDERED: traMADol 50 MG TABLET PO PRN (18:59)
[2017-06-30] MEDS ORDERED: HYDROCORTISONE 2.5% RECTAL CREAM 30 GM TUBE TOP PRN (18:59)
[2017-06-30] MEDS ORDERED: MAGNESIUM HYDROXIDE SUSP 30 ML UDCUP PO PRN (18:59)
[2017-06-30] MEDS ORDERED: ALUMINUM/MAGNES/SIMETH MAX STR 30 ML UDCUP PO PRN (18:59)
[2017-06-30] MEDS ORDERED: ALPRAZolam 0.25 MG TABLET PO PRN (18:59)
[2017-06-30] MEDS ORDERED: MYLANTA/LIDO VISC 2:1 300 ML BOTTLE SWISH/SPIT PRN (18:59)
[2017-06-30] MEDS ORDERED: chlorproMAZINE INJ 50 MG in SODIUM CHLORIDE 0.9% 100 ML IV PRN (18:59)
[2017-06-30] MEDS ORDERED: LOPERAMIDE 2 MG CAPSULE PO PRN ×2 (18:59)
[2017-06-30] MEDS ORDERED: diphenhydrAMINE CAP 25 MG CAPSULE PO PRN (18:59)
[2017-06-30] MEDS ORDERED: BENZTROPINE 2 MG/2 ML AMP IV PRN (18:59)
[2017-06-30] MEDS ORDERED: chlorproMAZINE 25 MG TABLET PO PRN (18:59)
[2017-06-30] MEDS ORDERED: TEMAZEPAM 7.5 MG CAPSULE PO PRN (18:59)
[2017-06-30] MEDS ORDERED: chlorproMAZINE INJ 25 MG in SODIUM CHLORIDE 0.9% 100 ML IV PRN (18:59)
[2017-06-30] MEDS ORDERED: ACETAMINOPHEN 325 MG TABLET PO PRN (18:59)
[2017-06-30 19:50] LABS: Magnesium 1.7 MG/DL (1.8-2.4); Uric Acid 3.8 MG/DL (2.6-6.0)
[2017-06-30] MEDS: SODIUM CHLORIDE 0.9% 1,000 ML IV SCH (21:06)
[2017-06-30] MEDS: SULFAMETHOX/TRIMETHOPRIM 800-160 MG TABLET PO SCH (23:17)
[2017-07-01] MEDS ORDERED: HYDROmorphone 2 MG TABLET PO PRN (04:29)
[2017-07-01 05:50] LABS: Basophils % 0.7 % (0.0-0.8); Eosinophils % 1.3 % (0.00-10.9); Hemoglobin 9.3 GM/DL (12.0-16.0); Immature Granulocytes % 1.3 %; Immature Granulocytes Absolute 0.02 #; Lymphocytes # 0.4 10*3/uL (1.4-4.0); Lymphocytes % 28.9 % (21.3-54.2); Mean Corpuscular HGB Conc 33.2 GM/DL (32-36); Mean Corpuscular Hemoglobin 30 PG (27-34); Mean Corpuscular Volume 88.9 FL (87-102); Mean Platelet Volume 9.7 FL (9.6-12.0); Monocytes # 0.1 10*3/uL (0.11-0.8); Monocytes % 7.4 % (1.7-12.7); NRBC # 0.02 10*3/uL; Neutrophils # 0.9 10*3/uL (1.4-7.4); Neutrophils % 60.4 % (38.7-73.9); Platelet Count 126 T/CUMM (130-400); Red Blood Count 3.15 MC/CUMM (3.8-5.5); White Blood Count 1.5 T/CUMM (4-12)
[2017-07-01 05:54] LABS: Apearance,Urine Slightly Hazy (Clear); Bacteria,Urine Occasional /HPF (Few); Bilirubin,Urine Negative (Negative); Blood, Urine Moderate mg/dL (Negative); Glucose,Urine (UA) Negative (Negative); Ketones,Urine Negative (Negative); Mucus,Urine Occasional /LPF (Occasional); Nitrite,Urine Positive (Negative); Protein,Urine 100 MG/DL; RBC,Urine 201 /HPF (0-4); Urine Color Yellow (Yellow); Urine Specific Gravity 1.008 (1.001-1.035); Urine Urobilinogen < 2.0 EU/DL (0.2-1.0); WBC,Urine 59 /HPF (0-6)
[2017-07-01 06:13] LABS: Alanine Aminotransferase < 9 U/L (13-56); Albumin 2.3 G/DL (3.4-5.0); Alkaline Phosphatase 68 U/L (45-117); Aspartate Amino Transferase 14 U/L (0-37); Blood Urea Nitrogen 6 MG/DL (7-18); Calcium 7.7 MG/DL (8.5-10.1); Glucose 87 MG/DL (74-106); Osmolality,Calculated 275.4 MOS/KG (273-304); Potassium 3.8 MMOL/L (3.5-5.1); Sodium 140 MMOL/L (136-145); Total Protein 5.7 G/DL (6.4-8.3)
[2017-07-01] MEDS: SODIUM CHLORIDE 0.9% 1,000 ML IV SCH (10:17)
[2017-07-01] MEDS: GABAPENTIN 100 MG CAPSULE PO SCH ×3 (10:17→22:33)
[2017-07-01] MEDS: DOCUSATE SODIUM 100 MG CAPSULE PO SCH ×2 (10:17→22:33)
[2017-07-01] MEDS: POTASSIUM CHLORIDE 20 MEQ TABLET PO SCH (10:17)
[2017-07-01] MEDS: PANTOPRAZOLE 40 MG TABLET PO SCH (10:18)
[2017-07-01] MEDS: SENNA 8.6 MG TABLET PO SCH ×2 (10:18→22:33)
[2017-07-01] MEDS: POLYETHYLENE GLYCOL POWDER 17 GM PACK PO SCH (10:18)
[2017-07-01] MEDS: SULFAMETHOX/TRIMETHOPRIM 800-160 MG TABLET PO SCH ×2 (10:18→22:33)
[2017-07-01] MEDS: BRIMONIDINE/TIMOLOL OPH SOLN 5 ML BOTTLE BOTH EYES SCH ×2 (10:18→22:36)
[2017-07-01] MEDS: metroNIDAZOLE INJ 500 MG in PREMIX 1 EACH IV SCH ×2 (13:44→18:39)
[2017-07-01] MEDS: FILGRASTIM-SNDZ 300 MCG/0.5 ML SYRINGE SUBCUT SCH (13:45)
[2017-07-01 14:11] LABS: Eosinophils 2 % (0-10); Lymphocytes 45 % (20-55); Platelet Estimate Decreased; Polychromasia Few; Segmented Neutrophils 50 % (50-85); Total Cells Counted 99
[2017-07-01] MEDS: ONDANSETRON 4 MG/2 ML VIAL IV PRN (17:44)
[2017-07-02] MEDS: metroNIDAZOLE INJ 500 MG in PREMIX 1 EACH IV SCH (01:58)
[2017-07-02] MEDS: SODIUM CHLORIDE 0.9% 1,000 ML IV SCH ×2 (01:58→15:24)
[2017-07-02 06:03] LABS: Calcium 7.6 MG/DL (8.5-10.1); Osmolality,Calculated 271.7 MOS/KG (273-304)
[2017-07-02 06:30] LABS: Basophils % 0.6 % (0.0-0.8); Eosinophils % 2.4 % (0.00-10.9); Hematocrit 28.1 VOL% (35.7-47.0); Hemoglobin 9.3 GM/DL (12.0-16.0); Immature Granulocytes % 18.1 %; Lymphocytes # 0.5 10*3/uL (1.4-4.0); Lymphocytes % 29.5 % (21.3-54.2); Mean Corpuscular HGB Conc 33.1 GM/DL (32-36); Mean Corpuscular Hemoglobin 29 PG (27-34); Mean Corpuscular Volume 88.9 FL (87-102); Mean Platelet Volume 10.2 FL (9.6-12.0); Monocytes # 0.1 10*3/uL (0.11-0.8); Monocytes % 5.4 % (1.7-12.7); Neutrophils # 0.7 10*3/uL (1.4-7.4); Platelet Count 136 T/CUMM (130-400); Red Blood Count 3.16 MC/CUMM (3.8-5.5); Red Cell Distribution Width 17.7 % (9.3-17.3); White Blood Count 1.7 T/CUMM (4-12)
[2017-07-02] MEDS: ONDANSETRON 4 MG/2 ML VIAL IV PRN (07:01)
[2017-07-02 09:35] LABS: Band Neutrophils 10 % (0-10); Eosinophils 10 % (0-10); Lymphocytes 30 % (20-55); Segmented Neutrophils 40 % (50-85); Total Cells Counted 100
[2017-07-02 09:38] LABS: Platelet Estimate Adequate; Polychromasia Slight; Target Cells Slight
[2017-07-02] MEDS: GABAPENTIN 100 MG CAPSULE PO SCH ×3 (09:48→21:18)
[2017-07-02] MEDS: DOCUSATE SODIUM 100 MG CAPSULE PO SCH ×2 (09:48→21:18)
[2017-07-02] MEDS: PANTOPRAZOLE 40 MG TABLET PO SCH (09:48)
[2017-07-02] MEDS: POTASSIUM CHLORIDE 20 MEQ TABLET PO SCH (09:48)
[2017-07-02] MEDS: SENNA 8.6 MG TABLET PO SCH ×2 (09:48→21:19)
[2017-07-02] MEDS: POLYETHYLENE GLYCOL POWDER 17 GM PACK PO SCH (09:48)
[2017-07-02] MEDS: BRIMONIDINE/TIMOLOL OPH SOLN 5 ML BOTTLE BOTH EYES SCH ×2 (09:49→21:19)
[2017-07-02] MEDS: FILGRASTIM-SNDZ 300 MCG/0.5 ML SYRINGE SUBCUT SCH (09:49)
[2017-07-02] MEDS: cefTRIAXone 1,000 MG in SYRINGE 1 EACH IV SCH (09:49)
[2017-07-02] MEDS: SULFAMETHOX/TRIMETHOPRIM 800-160 MG TABLET PO SCH (21:22)
[2017-07-03] MEDS: SODIUM CHLORIDE 0.9% 1,000 ML IV SCH ×2 (04:52→18:32)
[2017-07-03 06:09] LABS: Eosinophils # 0.1 10*3/uL (0.0-0.87); Eosinophils % 3.4 % (0.00-10.9); Hematocrit 27.6 VOL% (35.7-47.0); Hemoglobin 8.9 GM/DL (12.0-16.0); Immature Granulocytes % 10.8 %; Immature Granulocytes Absolute 0.32 #; Lymphocytes # 0.8 10*3/uL (1.4-4.0); Lymphocytes % 26.4 % (21.3-54.2); Mean Corpuscular HGB Conc 32.2 GM/DL (32-36); Mean Corpuscular Hemoglobin 29 PG (27-34); Mean Corpuscular Volume 91.1 FL (87-102); Mean Platelet Volume 10.3 FL (9.6-12.0); Monocytes # 0.2 10*3/uL (0.11-0.8); Monocytes % 6.8 % (1.7-12.7); Neutrophils # 1.5 10*3/uL (1.4-7.4); Neutrophils % 51.6 % (38.7-73.9); Platelet Count 123 T/CUMM (130-400); Red Blood Count 3.03 MC/CUMM (3.8-5.5); Red Cell Distribution Width 17.6 % (9.3-17.3)
[2017-07-03 06:35] LABS: Calcium 8.1 MG/DL (8.5-10.1); Osmolality,Calculated 277.3 MOS/KG (273-304); Potassium 4.1 MMOL/L (3.5-5.1)
[2017-07-03 06:53] LABS: Band Neutrophils 6 % (0-10); Eosinophils 4 % (0-10); Hypochromasia 1+; Lymphocytes 28 % (20-55); Microcytosis 1+; Nucleated Red Blood Cells 1 (0-5); Ovalocytes Slight; Platelet Estimate Adequate; Segmented Neutrophils 57 % (50-85); Total Cells Counted 100
[2017-07-03] MEDS ORDERED: fentaNYL 100 MCG/HR PATCH TRANSDERM SCH (09:00)
[2017-07-03] MEDS: POLYETHYLENE GLYCOL POWDER 17 GM PACK PO SCH (10:14)
[2017-07-03] MEDS: cefTRIAXone 1,000 MG in SYRINGE 1 EACH IV SCH (10:15)
[2017-07-03] MEDS: FILGRASTIM-SNDZ 300 MCG/0.5 ML SYRINGE SUBCUT SCH (10:15)
[2017-07-03] MEDS: GABAPENTIN 100 MG CAPSULE PO SCH ×3 (10:16→21:14)
[2017-07-03] MEDS: POTASSIUM CHLORIDE 20 MEQ TABLET PO SCH (10:16)
[2017-07-03] MEDS: BRIMONIDINE/TIMOLOL OPH SOLN 5 ML BOTTLE BOTH EYES SCH ×2 (10:16→21:15)
[2017-07-03] MEDS: DOCUSATE SODIUM 100 MG CAPSULE PO SCH ×2 (10:16→21:14)
[2017-07-03] MEDS: SENNA 8.6 MG TABLET PO SCH ×2 (10:17→21:14)
[2017-07-03] MEDS: PANTOPRAZOLE 40 MG TABLET PO SCH (10:17)
[2017-07-04 05:33] LABS: Basophils % 0.7 % (0.0-0.8); Eosinophils # 0.1 10*3/uL (0.0-0.87); Hematocrit 28.5 VOL% (35.7-47.0); Hemoglobin 9.2 GM/DL (12.0-16.0); Immature Granulocytes % 5.4 %; Immature Granulocytes Absolute 0.24 #; Lymphocytes % 21.3 % (21.3-54.2); Mean Corpuscular HGB Conc 32.3 GM/DL (32-36); Mean Corpuscular Hemoglobin 29 PG (27-34); Mean Corpuscular Volume 90.5 FL (87-102); Mean Platelet Volume 10.2 FL (9.6-12.0); Monocytes # 0.5 10*3/uL (0.11-0.8); Monocytes % 11.2 % (1.7-12.7); Neutrophils # 2.7 10*3/uL (1.4-7.4); Neutrophils % 59.4 % (38.7-73.9); Platelet Count 151 T/CUMM (130-400); Red Blood Count 3.15 MC/CUMM (3.8-5.5); Red Cell Distribution Width 17.3 % (9.3-17.3); White Blood Count 4.5 T/CUMM (4-12)
[2017-07-04 06:02] LABS: Band Neutrophils 4 % (0-10); Eosinophils 5 % (0-10); Hypochromasia 1+; Lymphocytes 23 % (20-55); Microcytosis 1+; Nucleated Red Blood Cells 1 (0-5); Platelet Estimate Adequate; Segmented Neutrophils 58 % (50-85); Total Cells Counted 100
[2017-07-04] MEDS: cefTRIAXone 1,000 MG in SYRINGE 1 EACH IV SCH (08:06)
[2017-07-04] MEDS: FILGRASTIM-SNDZ 300 MCG/0.5 ML SYRINGE SUBCUT SCH (08:07)
[2017-07-04] MEDS: SODIUM CHLORIDE 0.9% 1,000 ML IV SCH (08:08)
[2017-07-04] MEDS: GABAPENTIN 100 MG CAPSULE PO SCH ×3 (08:08→20:15)
[2017-07-04] MEDS: SENNA 8.6 MG TABLET PO SCH ×2 (08:08→20:15)
[2017-07-04] MEDS: POLYETHYLENE GLYCOL POWDER 17 GM PACK PO SCH (08:09)
[2017-07-04] MEDS: PANTOPRAZOLE 40 MG TABLET PO SCH (08:09)
[2017-07-04] MEDS: BRIMONIDINE/TIMOLOL OPH SOLN 5 ML BOTTLE BOTH EYES SCH ×2 (08:09→20:17)
[2017-07-04] MEDS: POTASSIUM CHLORIDE 20 MEQ TABLET PO SCH (08:09)
[2017-07-04] MEDS: DOCUSATE SODIUM 100 MG CAPSULE PO SCH ×2 (08:09→20:15)
[2017-07-04] MEDS: CIPROFLOXACIN 500 MG TABLET PO SCH ×2 (14:22→20:15)
[2017-07-04] MEDS: SULFAMETHOX/TRIMETHOPRIM 800-160 MG TABLET PO SCH ×2 (14:22→20:15)
[2017-07-05 05:16] LABS: Basophils # 0.1 10*3/uL (0.0-0.2); Basophils % 0.8 % (0.0-0.8); Eosinophils # 0.1 10*3/uL (0.0-0.87); Eosinophils % 1.2 % (0.00-10.9); Hematocrit 26.9 VOL% (35.7-47.0); Hemoglobin 8.6 GM/DL (12.0-16.0); Immature Granulocytes % 11.1 %; Immature Granulocytes Absolute 0.67 #; Lymphocytes # 1.1 10*3/uL (1.4-4.0); Lymphocytes % 17.9 % (21.3-54.2); Mean Corpuscular Hemoglobin 29 PG (27-34); Mean Corpuscular Volume 91.5 FL (87-102); Mean Platelet Volume 10.4 FL (9.6-12.0); Monocytes # 0.9 10*3/uL (0.11-0.8); Monocytes % 14.4 % (1.7-12.7); NRBC # 0.02 10*3/uL; Neutrophils # 3.3 10*3/uL (1.4-7.4); Neutrophils % 54.6 % (38.7-73.9); Platelet Count 157 T/CUMM (130-400); Red Blood Count 2.94 MC/CUMM (3.8-5.5); Red Cell Distribution Width 17.2 % (9.3-17.3)
[2017-07-05 05:50] LABS: Band Neutrophils 9 % (0-10); Eosinophils 1 % (0-10); Hypochromasia 1+; Lymphocytes 17 % (20-55); Microcytosis 1+; Myelocytes 1 %; Nucleated Red Blood Cells 1 (0-5); Segmented Neutrophils 58 % (50-85); Total Cells Counted 100
[2017-07-05 05:51] LABS: Platelet Estimate Adequate
[2017-07-05] MEDS: CIPROFLOXACIN 500 MG TABLET PO SCH (08:52)
[2017-07-05] MEDS: POLYETHYLENE GLYCOL POWDER 17 GM PACK PO SCH (08:52)
[2017-07-05] MEDS: SULFAMETHOX/TRIMETHOPRIM 800-160 MG TABLET PO SCH (08:52)
[2017-07-05] MEDS: GABAPENTIN 100 MG CAPSULE PO SCH ×2 (08:52→16:25)
[2017-07-05] MEDS: SENNA 8.6 MG TABLET PO SCH (08:53)
[2017-07-05] MEDS: POTASSIUM CHLORIDE 20 MEQ TABLET PO SCH (08:53)
[2017-07-05] MEDS: PANTOPRAZOLE 40 MG TABLET PO SCH (08:53)
[2017-07-05] MEDS: BRIMONIDINE/TIMOLOL OPH SOLN 5 ML BOTTLE BOTH EYES SCH (08:54)
[2017-07-05] MEDS: DOCUSATE SODIUM 100 MG CAPSULE PO SCH (08:59)
[2017-07-05] MEDS ORDERED: HEPARIN LOCK FLUSH 500 UNIT/5 ML SYRINGE IV ONE (11:03)
[2017-07-05] MEDS: ONDANSETRON 4 MG/2 ML VIAL IV PRN (11:05)
[2017-07-05 12:01] VITALS: BP 112/54
== END 2017-07-05 17:12 | disposition home or self-care (01) | DRG 698 ==
LOC: N.ED 10:35 → N.EDINP 15:34 → N.4E 18:33
PROVIDERS: ADMIT Specialist; ATTEND Specialist

== ENCOUNTER 2018-01-07 13:10 | Observation (INO) ==
[2018-01-07 15:40] LABS: Basophils % 0.5 % (0.0-0.8); Eosinophils # 0.2 10*3/uL (0.0-0.87); Eosinophils % 3.4 % (0.00-10.9); Hematocrit 23.2 VOL% (35.7-47.0); Hemoglobin 7.4 GM/DL (12.0-16.0); Immature Granulocytes % 2.2 %; Immature Granulocytes Absolute 0.13 #; Lymphocytes # 1.1 10*3/uL (1.4-4.0); Lymphocytes % 19.4 % (21.3-54.2); Mean Corpuscular HGB Conc 31.9 GM/DL (32-36); Mean Corpuscular Hemoglobin 32 PG (27-34); Mean Corpuscular Volume 99.6 FL (87-102); Mean Platelet Volume 10.7 FL (9.6-12.0); Monocytes # 1.1 10*3/uL (0.11-0.8); Monocytes % 19.2 % (1.7-12.7); Neutrophils # 3.3 10*3/uL (1.4-7.4); Neutrophils % 55.3 % (38.7-73.9); Platelet Count 88 T/CUMM (130-400); Red Blood Count 2.33 MC/CUMM (3.8-5.5); Red Cell Distribution Width 17.4 % (9.3-17.3); White Blood Count 5.9 T/CUMM (4-12)
[2018-01-07 15:46] LABS: PT Patient Result 10.9 SECS
[2018-01-07 15:56] LABS: Alanine Aminotransferase 10 U/L (13-56); Albumin 2.8 G/DL (3.4-5.0); Alkaline Phosphatase 103 U/L (45-117); Aspartate Amino Transferase 8 U/L (0-37); Bilirubin,Total < 0.39 MG/DL (0.2-1.0); Blood Urea Nitrogen 17 MG/DL (7-18); Glucose 103 MG/DL (74-106); Potassium 3.9 MMOL/L (3.5-5.1); Sodium 136 MMOL/L (136-145); Total Protein 7.7 G/DL (6.4-8.3)
[2018-01-07 15:58] LABS: Apearance,Urine CLOUDY (Clear); Bilirubin,Urine Negative (Negative); Blood, Urine Large mg/dL (Negative); Calcium Oxalate Crystals,Urine Moderate /HPF (Few); Glucose,Urine (UA) Negative (Negative); Hyaline Casts,Urine 4 /LPF (0-3); Ketones,Urine Negative (Negative); Mucus,Urine Few /LPF (Occasional); Nitrite,Urine Negative (Negative); Protein,Urine 100 MG/DL; RBC,Urine 605 /HPF (0-4); Urine Color Red (Yellow); Urine Specific Gravity 1.013 (1.001-1.035); Urine Urobilinogen < 2.0 EU/DL (0.2-1.0); WBC,Urine 125 /HPF (0-6)
[2018-01-07 16:19] LABS: Anisocytosis 1+; Band Neutrophils 8 % (0-10); Eosinophils 6 % (0-10); Hypochromasia 1+; Lymphocytes 14 % (20-55); Macrocytosis 1+; Segmented Neutrophils 59 % (50-85); Total Cells Counted 100
[2018-01-07 16:20] LABS: Platelet Estimate Decreased
[2018-01-07] MEDS ORDERED: ONDANSETRON 4 MG/2 ML VIAL IV STA (16:49)
[2018-01-07] MEDS ORDERED: ALUMINUM/MAGNES/SIMETH MAX STR 30 ML UDCUP PO PRN (17:14)
[2018-01-07] MEDS ORDERED: LOPERAMIDE 2 MG CAPSULE PO PRN ×2 (17:14)
[2018-01-07] MEDS ORDERED: TEMAZEPAM 7.5 MG CAPSULE PO PRN (17:14)
[2018-01-07] MEDS ORDERED: PROMETHAZINE INJ 25 MG in SODIUM CHLORIDE 0.9% 50 ML IV PRN (17:14)
[2018-01-07] MEDS ORDERED: LACTULOSE 20 GM/30 ML UDCUP PO PRN (17:14)
[2018-01-07] MEDS ORDERED: ALPRAZolam 0.25 MG TABLET PO PRN (17:14)
[2018-01-07] MEDS ORDERED: MAGNESIUM HYDROXIDE SUSP 30 ML UDCUP PO PRN (17:14)
[2018-01-07] MEDS ORDERED: diphenhydrAMINE CAP 25 MG CAPSULE PO PRN (17:14)
[2018-01-07] MEDS ORDERED: SODIUM CHLORIDE 0.9% 1,000 ML IV PRN (17:14)
[2018-01-07] MEDS ORDERED: chlorproMAZINE 25 MG TABLET PO PRN (17:14)
[2018-01-07] MEDS ORDERED: BENZTROPINE 2 MG/2 ML AMP IV PRN (17:14)
[2018-01-07] MEDS ORDERED: chlorproMAZINE INJ 25 MG in SODIUM CHLORIDE 0.9% 100 ML IV PRN (17:14)
[2018-01-07] MEDS ORDERED: MYLANTA/LIDO VISC 2:1 300 ML BOTTLE SWISH/SPIT PRN (17:14)
[2018-01-07] MEDS ORDERED: MYLANTA/LIDO VISC 2:1 300 ML BOTTLE SWISH/SWAL PRN (17:14)
[2018-01-07] MEDS ORDERED: ONDANSETRON 4 MG/2 ML VIAL IV PRN (17:14)
[2018-01-07] MEDS ORDERED: chlorproMAZINE INJ 50 MG in SODIUM CHLORIDE 0.9% 100 ML IV PRN (17:14)
[2018-01-07] MEDS ORDERED: traMADol 50 MG TABLET PO PRN (17:14)
[2018-01-07] MEDS ORDERED: ACETAMINOPHEN 325 MG TABLET PO PRN (17:14)
[2018-01-07] MEDS ORDERED: guaiFENesin 200 MG/10 ML UDCUP PO PRN (17:14)
[2018-01-07] MEDS ORDERED: PROMETHAZINE 25 MG TABLET PO PRN (17:17)
[2018-01-07] MEDS ORDERED: PROCHLORPERAZINE 10 MG TABLET PO PRN (17:17)
[2018-01-07] MEDS ORDERED: cefTRIAXone 1,000 MG in SODIUM CHLORIDE 0.9% 100 ML IV STA (17:20)
[2018-01-07] MEDS ORDERED: SODIUM CHLORIDE 0.9% 1,000 ML IV SCH (17:30)
[2018-01-07] MEDS: cefTRIAXone 1,000 MG in SYRINGE 1 EACH IV SCH (19:49)
[2018-01-07] MEDS: HYDROmorphone 2 MG TABLET PO PRN (19:50)
[2018-01-07] MEDS: POTASSIUM CHLORIDE 20 MEQ TABLET PO SCH (20:58)
[2018-01-07] MEDS: SENNA 8.6 MG TABLET PO SCH (20:58)
[2018-01-07] MEDS: DOCUSATE SODIUM 100 MG CAPSULE PO SCH (20:58)
[2018-01-07] MEDS ORDERED: fentaNYL 100 MCG/HR PATCH TRANSDERM SCH (21:00)
[2018-01-07] MEDS: BRIMONIDINE/TIMOLOL OPH SOLN 5 ML BOTTLE BOTH EYES SCH (21:00)
[2018-01-07] MEDS ORDERED: APIXABAN 5 MG TABLET PO SCH (21:00)
[2018-01-08 04:40] LABS: Basophils # 0.1 10*3/uL (0.0-0.2); Eosinophils # 0.3 10*3/uL (0.0-0.87); Eosinophils % 4.3 % (0.00-10.9); Hematocrit 29.1 VOL% (35.7-47.0); Immature Granulocytes % 1.5 %; Immature Granulocytes Absolute 0.09 #; Lymphocytes # 0.7 10*3/uL (1.4-4.0); Lymphocytes % 11.1 % (21.3-54.2); Mean Corpuscular HGB Conc 32.6 GM/DL (32-36); Mean Corpuscular Hemoglobin 31 PG (27-34); Mean Corpuscular Volume 95.1 FL (87-102); Mean Platelet Volume 11.2 FL (9.6-12.0); Monocytes # 1.1 10*3/uL (0.11-0.8); Monocytes % 18.8 % (1.7-12.7); Neutrophils # 3.8 10*3/uL (1.4-7.4); Neutrophils % 63.3 % (38.7-73.9); Platelet Count 77 T/CUMM (130-400); Red Blood Count 3.06 MC/CUMM (3.8-5.5); Red Cell Distribution Width 16.9 % (9.3-17.3); White Blood Count 6.1 T/CUMM (4-12)
[2018-01-08 04:56] LABS: Hemoglobin 9.5 GM/DL (12.0-16.0)
[2018-01-08 05:05] LABS: Band Neutrophils 6 % (0-10); Eosinophils 4 % (0-10); Lymphocytes 15 % (20-55); Platelet Estimate Decreased; Segmented Neutrophils 56 % (50-85); Total Cells Counted 100
[2018-01-08 05:06] LABS: Hypochromasia 1+; Ovalocytes Slight
[2018-01-08] MEDS ORDERED: PANTOPRAZOLE 40 MG TABLET PO SCH (09:00)
[2018-01-08] MEDS ORDERED: POLYETHYLENE GLYCOL POWDER 17 GM PACK PO SCH (09:00)
[2018-01-08] MEDS: cefTRIAXone 1,000 MG in SYRINGE 1 EACH IV SCH (09:11)
[2018-01-08] MEDS: POTASSIUM CHLORIDE 20 MEQ TABLET PO SCH (09:12)
[2018-01-08] MEDS: SENNA 8.6 MG TABLET PO SCH ×2 (09:12→09:14)
[2018-01-08] MEDS: BRIMONIDINE/TIMOLOL OPH SOLN 5 ML BOTTLE BOTH EYES SCH (09:12)
[2018-01-08] MEDS: DOCUSATE SODIUM 100 MG CAPSULE PO SCH (09:12)
[2018-01-08] MEDS: HYDROmorphone 2 MG TABLET PO PRN (12:47)
[2018-01-08 13:16] VITALS: BP 104/53
[2018-01-08 14:37] LABS: Apearance,Urine CLOUDY (Clear); Bilirubin,Urine Negative (Negative); Blood, Urine Moderate mg/dL (Negative); Glucose,Urine (UA) Negative (Negative); Ketones,Urine Negative (Negative); Mucus,Urine Occasional /LPF (Occasional); Nitrite,Urine Negative (Negative); Protein,Urine 100 MG/DL; RBC,Urine 141 /HPF (0-4); Squamous Epithelial Cell,Urine Occasional /HPF (0-10); Urine Color Yellow (Yellow); Urine Specific Gravity 1.013 (1.001-1.035); Urine Urobilinogen < 2.0 EU/DL (0.2-1.0); WBC,Urine 309 /HPF (0-6)
== END 2018-01-08 15:59 | disposition home or self-care (01) ==
LOC: N.ED 13:10 → N.EDINP 13:10 → N.4E 19:19
PROVIDERS: ADMIT Specialist; ATTEND Specialist